=== PATIENT | female | born 1930 | race African-American/Black ===

== ENCOUNTER 2017-08-23 16:18 | Inpatient (IN) ==
[2017-08-23] MEDS ORDERED: ACETAMINOPHEN 500 MG TABLET PO STA (17:05)
[2017-08-23] MEDS ORDERED: cefTRIAXone 1,000 MG in SODIUM CHLORIDE 0.9% 100 ML IV STA (17:05)
[2017-08-23] MEDS ORDERED: SODIUM CHLORIDE 0.9% 500 ML IV STA (17:05)
[2017-08-23 17:34] LABS: Basophils % 0.2 % (0.0-0.8); Hematocrit 23.3 VOL% (35.7-47.0); Hemoglobin 7.2 GM/DL (12.0-16.0); Immature Granulocytes % 0.5 %; Immature Granulocytes Absolute 0.08 #; Lymphocytes # 1.2 10*3/uL (1.4-4.0); Lymphocytes % 7.7 % (21.3-54.2); Mean Corpuscular HGB Conc 30.9 GM/DL (32-36); Mean Corpuscular Hemoglobin 36 PG (27-34); Mean Corpuscular Volume 117.7 FL (87-102); Mean Platelet Volume 12.3 FL (9.6-12.0); Monocytes # 0.9 10*3/uL (0.11-0.8); Monocytes % 5.4 % (1.7-12.7); NRBC # 1.26 10*3/uL; Neutrophils # 13.9 10*3/uL (1.4-7.4); Neutrophils % 86.2 % (38.7-73.9); Platelet Count 171 T/CUMM (130-400); Red Blood Count 1.98 MC/CUMM (3.8-5.5); Red Cell Distribution Width 19.2 % (9.3-17.3); White Blood Count 16.1 T/CUMM (4-12)
[2017-08-23 17:47] LABS: INR 1.5; PT Patient Result 16.1 SECS
[2017-08-23] MEDS ORDERED: cefTRIAXone 1,000 MG VIAL ONE (17:51)
[2017-08-23] MEDS ORDERED: ACETAMINOPHEN 650 MG SUPP RECTAL STA (17:51)
[2017-08-23] MEDS ORDERED: ACETAMINOPHEN 650 MG SUPP RECTAL ONE (17:52)
[2017-08-23 17:56] LABS: Alanine Aminotransferase 34 U/L (13-56); Albumin 2.5 G/DL (3.4-5.0); Alkaline Phosphatase 95 U/L (45-117); Amylase 15 U/L (25-115); Aspartate Amino Transferase 30 U/L (0-37); Bilirubin,Total < 0.39 MG/DL (0.2-1.0); Blood Urea Nitrogen 75 MG/DL (7-18); Calcium 8.8 MG/DL (8.5-10.1); Glucose 385 MG/DL (74-106); Osmolality,Calculated 346.2 MOS/KG (273-304); Potassium 3.7 MMOL/L (3.5-5.1); Sodium 156 MMOL/L (136-145); Total Protein 6.9 G/DL (6.4-8.3)
[2017-08-23 17:57] LABS: Lactic Acid 2.9 MMOL/L (0.4-2.0)
[2017-08-23 18:04] LABS: Apearance,Urine CLOUDY (Clear); Bacteria,Urine Many /HPF (Few); Bilirubin,Urine Negative (Negative); Blood, Urine Small mg/dL (Negative); Glucose,Urine (UA) 50 mg/dL (Negative); Ketones,Urine Negative (Negative); Mucus,Urine Occasional /LPF (Occasional); Nitrite,Urine Negative (Negative); Protein,Urine Negative; RBC,Urine 20 /HPF (0-4); Urine Color Amber (Yellow); Urine Specific Gravity 1.014 (1.001-1.035); Urine Urobilinogen < 2.0 EU/DL (0.2-1.0)
[2017-08-23 18:20] LABS: Anisocytosis 2+; Hypochromasia 1+; Macrocytosis 2+; Ovalocytes 1+; Platelet Estimate Adequate; Poikilocytosis 1+; Polychromasia 1+
[2017-08-23 18:40] LABS: Sedimentation Rate-Westergren 130 MM/HR (0-30)
[2017-08-23] MEDS ORDERED: INSULIN REGULAR 100 UNIT/ML SUBCUT STA (18:59)
[2017-08-23 19:04] LABS: INR 1.5; Partial Thromboplastin Time 25.6 SECS (0-40)
[2017-08-23] MEDS ORDERED: MEROPENEM 1,000 MG VIAL IV ONE (19:16)
[2017-08-23] MEDS ORDERED: INSULIN REGULAR 100 UNIT/ML ONE (19:18)
[2017-08-23] MEDS: MEROPENEM 1,000 MG in SYRINGE 1 EACH IV SCH (19:27)
[2017-08-23] MEDS ORDERED: MORPHINE 2 MG/1 ML SYRINGE IV PRN (22:16)
[2017-08-23] MEDS ORDERED: ONDANSETRON 4 MG/2 ML VIAL IV PRN (22:16)
[2017-08-23] MEDS ORDERED: GLUCAGON 1 MG VIAL IM PRN (22:16)
[2017-08-23] MEDS ORDERED: SODIUM CHLORIDE 0.9% 1,000 ML IV SCH (22:16)
[2017-08-23] MEDS ORDERED: DEXTROSE 50% 25 GM/50 ML VIAL IV PRN (22:16)
[2017-08-23] MEDS ORDERED: DOCUSATE SODIUM 100 MG CAPSULE PO SCH (22:16)
[2017-08-23] MEDS: ENOXAPARIN 40 MG/0.4 ML SYRINGE SUBCUT SCH (22:50)
[2017-08-23] MEDS: INSULIN REGULAR 100 UNIT/ML SUBCUT SCH (22:53)
[2017-08-24] MEDS: MEROPENEM 1,000 MG in SYRINGE 1 EACH IV SCH ×3 (02:30→21:16)
[2017-08-24 03:05] LABS: Basophils % 0.2 % (0.0-0.8); Hematocrit 22.6 VOL% (35.7-47.0); Hemoglobin 6.6 GM/DL (12.0-16.0); Immature Granulocytes % 0.7 %; Immature Granulocytes Absolute 0.11 #; Lymphocytes % 12.6 % (21.3-54.2); Mean Corpuscular HGB Conc 29.2 GM/DL (32-36); Mean Corpuscular Hemoglobin 36 PG (27-34); Mean Corpuscular Volume 122.2 FL (87-102); Mean Platelet Volume 12.4 FL (9.6-12.0); NRBC # 1.61 10*3/uL; Neutrophils # 12.7 10*3/uL (1.4-7.4); Neutrophils % 80.5 % (38.7-73.9); Platelet Count 152 T/CUMM (130-400); Red Blood Count 1.85 MC/CUMM (3.8-5.5); Red Cell Distribution Width 19.8 % (9.3-17.3); White Blood Count 15.8 T/CUMM (4-12)
[2017-08-24 03:30] LABS: Alanine Aminotransferase 33 U/L (13-56); Albumin 2.2 G/DL (3.4-5.0); Alkaline Phosphatase 86 U/L (45-117); Aspartate Amino Transferase 34 U/L (0-37); Blood Urea Nitrogen 66 MG/DL (7-18); Calcium 8.5 MG/DL (8.5-10.1); Glucose 260 MG/DL (74-106); Potassium 3.1 MMOL/L (3.5-5.1); Total Protein 6.4 G/DL (6.4-8.3)
[2017-08-24 03:31] LABS: Risk Ratio 1.89
[2017-08-24 03:37] LABS: Sodium 164 MMOL/L (136-145)
[2017-08-24 04:04] LABS: Band Neutrophils 5 % (0-10); Lymphocytes 13 % (20-55); Metamyelocytes 1 %; Nucleated Red Blood Cells 10 (0-5); Segmented Neutrophils 79 % (50-85); Total Cells Counted 100
[2017-08-24 04:05] LABS: Anisocytosis 1+; Hypochromasia 1+; Polychromasia Few
[2017-08-24 04:06] LABS: Platelet Estimate Normal; Target Cells Few
[2017-08-24 04:12] LABS: Lactic Acid 2.2 MMOL/L (0.4-2.0)
[2017-08-24] MEDS ORDERED: SODIUM CHLORIDE 0.9% 1,000 ML IV PRN (04:26)
[2017-08-24] MEDS: SODIUM CHLORIDE 23.4% CONC INJ 38.5 MEQ in STERILE WATER INJ 1,000 ML IV SCH ×2 (05:42→14:52)
[2017-08-24] MEDS: ACETAMINOPHEN 325 MG TABLET PO PRN (07:22)
[2017-08-24] MEDS ORDERED: [UNRECOGNIZED DRUG - OTHER] PEG SCH (09:00)
[2017-08-24] MEDS: MULTIVITAMIN LIQUID (CENTRUM) 60 ML BOTTLE PO SCH (09:10)
[2017-08-24] MEDS: levETIRAcetam LIQUID 100 MG/ML 30 ML/BOTTLE PEG SCH ×2 (09:10→21:16)
[2017-08-24] MEDS: PANTOPRAZOLE 40 MG VIAL IV SCH (09:11)
[2017-08-24] MEDS: DOCUSATE SODIUM 100 MG/10 ML UDCUP PO SCH ×2 (09:11→21:17)
[2017-08-24] MEDS: PHENYTOIN 100 MG/4 ML UDCUP PEG SCH (09:11)
[2017-08-24] MEDS: BRIMONIDINE 0.2% OPH SOLN 5 ML BOTTLE BOTH EYES SCH ×2 (09:11→21:15)
[2017-08-24] MEDS: DILTIAZEM 60 MG TABLET PO SCH ×2 (09:12→21:17)
[2017-08-24] MEDS: POLYVINYL ALCOHOL 1.4% OPH SOLN 15 ML BOTTLE BOTH EYES PRN ×2 (09:12→21:16)
[2017-08-24] MEDS: ASPIRIN CHEW 81 MG TABLET PO SCH (09:12)
[2017-08-24] MEDS: LISINOPRIL 5 MG TABLET PEG SCH (09:12)
[2017-08-24] MEDS: INSULIN REGULAR 100 UNIT/ML SUBCUT SCH ×3 (09:34→17:15)
[2017-08-24 11:12] LABS: Apearance,Urine CLOUDY (Clear); Bilirubin,Urine Negative (Negative); Blood, Urine Moderate mg/dL (Negative); Glucose,Urine (UA) Negative (Negative); Ketones,Urine Negative (Negative); Mucus,Urine Occasional /LPF (Occasional); Nitrite,Urine Negative (Negative); Protein,Urine Negative; RBC,Urine 55 /HPF (0-4); Squamous Epithelial Cell,Urine Occasional /HPF (0-10); Urine Color Yellow (Yellow); Urine Specific Gravity 1.016 (1.001-1.035); Urine Urobilinogen < 2.0 EU/DL (0.2-1.0); WBC,Urine 53 /HPF (0-6)
[2017-08-24 13:44] LABS: Basophils % 0.2 % (0.0-0.8); Eosinophils % 0.1 % (0.00-10.9); Hematocrit 23.6 VOL% (35.7-47.0); Hemoglobin 7.3 GM/DL (12.0-16.0); Immature Granulocytes % 0.6 %; Immature Granulocytes Absolute 0.08 #; Lymphocytes # 1.8 10*3/uL (1.4-4.0); Lymphocytes % 14.2 % (21.3-54.2); Mean Corpuscular HGB Conc 30.9 GM/DL (32-36); Mean Corpuscular Hemoglobin 35 PG (27-34); Mean Corpuscular Volume 112.4 FL (87-102); Mean Platelet Volume 11.7 FL (9.6-12.0); Monocytes # 0.7 10*3/uL (0.11-0.8); Monocytes % 5.3 % (1.7-12.7); NRBC # 1.46 10*3/uL; Neutrophils # 10.3 10*3/uL (1.4-7.4); Neutrophils % 79.6 % (38.7-73.9); Platelet Count 128 T/CUMM (130-400); Red Cell Distribution Width 21.7 % (9.3-17.3)
[2017-08-24 14:09] LABS: Calcium 8.1 MG/DL (8.5-10.1); Osmolality,Calculated 342.5 MOS/KG (273-304); Potassium 3.1 MMOL/L (3.5-5.1)
[2017-08-24] MEDS: POTASSIUM CHLORIDE 20 MEQ/15 ML UDCUP PER TUBE PRN ×4 (14:51→21:15)
[2017-08-24 15:48] LABS: Band Neutrophils 2 % (0-10); Lymphocytes 17 % (20-55); Nucleated Red Blood Cells 10 (0-5); Platelet Estimate Normal; Segmented Neutrophils 80 % (50-85); Total Cells Counted 100
[2017-08-24] MEDS: ENOXAPARIN 40 MG/0.4 ML SYRINGE SUBCUT SCH (21:16)
[2017-08-24] MEDS: BIMATOPROST 0.01% OPH SOLN 2.5 ML BOTTLE BOTH EYES SCH (21:18)
[2017-08-25] MEDS: SODIUM CHLORIDE 23.4% CONC INJ 38.5 MEQ in STERILE WATER INJ 1,000 ML IV SCH (01:08)
[2017-08-25] MEDS: ENOXAPARIN 40 MG/0.4 ML SYRINGE SUBCUT SCH ×2 (01:09→22:16)
[2017-08-25] MEDS: INSULIN REGULAR 100 UNIT/ML SUBCUT SCH ×4 (01:13→17:41)
[2017-08-25] MEDS: ACETAMINOPHEN 325 MG TABLET PO PRN ×3 (01:14→15:45)
[2017-08-25] MEDS: MEROPENEM 1,000 MG in SYRINGE 1 EACH IV SCH ×2 (03:17→15:46)
[2017-08-25] MEDS ORDERED: FUROSEMIDE 20 MG/2 ML VIAL IV ONE (06:30)
[2017-08-25] MEDS ORDERED: SODIUM CHLORIDE 23.4% CONC INJ 38.5 MEQ in STERILE WATER INJ 1,000 ML IV SCH (07:00)
[2017-08-25 07:07] LABS: Calcium 7.8 MG/DL (8.5-10.1); Osmolality,Calculated 330.4 MOS/KG (273-304); Potassium 4.3 MMOL/L (3.5-5.1)
[2017-08-25] MEDS ORDERED: ZINC OXIDE PASTE 113 GM TUBE TOP PRN (07:32)
[2017-08-25] MEDS: BRIMONIDINE 0.2% OPH SOLN 5 ML BOTTLE BOTH EYES SCH ×2 (09:56→22:16)
[2017-08-25] MEDS: levETIRAcetam LIQUID 100 MG/ML 30 ML/BOTTLE PEG SCH ×2 (09:56→22:16)
[2017-08-25] MEDS: MULTIVITAMIN LIQUID (CENTRUM) 60 ML BOTTLE PO SCH (09:56)
[2017-08-25] MEDS: DOCUSATE SODIUM 100 MG/10 ML UDCUP PO SCH ×2 (09:57→22:16)
[2017-08-25] MEDS: ASPIRIN CHEW 81 MG TABLET PO SCH (09:57)
[2017-08-25] MEDS: LISINOPRIL 5 MG TABLET PEG SCH (09:57)
[2017-08-25] MEDS: DILTIAZEM 60 MG TABLET PO SCH (09:57)
[2017-08-25] MEDS: PHENYTOIN 100 MG/4 ML UDCUP PEG SCH (09:57)
[2017-08-25] MEDS: PANTOPRAZOLE 40 MG VIAL IV SCH (09:58)
[2017-08-25 11:43] LABS: Basophils % 0.2 % (0.0-0.8); Hematocrit 25.1 VOL% (35.7-47.0); Hemoglobin 7.8 GM/DL (12.0-16.0); Immature Granulocytes % 1.1 %; Immature Granulocytes Absolute 0.13 #; Lymphocytes # 1.3 10*3/uL (1.4-4.0); Lymphocytes % 10.4 % (21.3-54.2); Mean Corpuscular HGB Conc 31.1 GM/DL (32-36); Mean Corpuscular Hemoglobin 35 PG (27-34); Mean Corpuscular Volume 112.1 FL (87-102); Mean Platelet Volume 12.6 FL (9.6-12.0); Monocytes # 0.9 10*3/uL (0.11-0.8); Monocytes % 7.4 % (1.7-12.7); NRBC # 3.75 10*3/uL; Neutrophils % 80.9 % (38.7-73.9); Platelet Count 149 T/CUMM (130-400); Red Blood Count 2.24 MC/CUMM (3.8-5.5); White Blood Count 12.3 T/CUMM (4-12)
[2017-08-25] MEDS ORDERED: METOPROLOL TARTRATE 5 MG/5 ML VIAL IV SCH (12:00)
[2017-08-25] MEDS: DEXTROSE 5% 1,000 ML IV SCH (12:10)
[2017-08-25 12:12] LABS: Giant Platelets Few; Hypochromasia 1+; Lymphocytes 13 % (20-55); Nucleated Red Blood Cells 36 (0-5); Platelet Estimate Normal; Segmented Neutrophils 83 % (50-85); Total Cells Counted 100
[2017-08-25] MEDS ORDERED: METOPROLOL TARTRATE 5 MG/5 ML VIAL IV PRN (12:16)
[2017-08-25] MEDS ORDERED: ALBUTEROL/IPRATROPIUM 3 ML NEB RESP TX ONE (12:32)
[2017-08-25] MEDS ORDERED: VANCOMYCIN INJ 1,250 MG in SODIUM CHLORIDE 0.45% 250 ML IV PRN (13:30)
[2017-08-25] MEDS ORDERED: VANCOMYCIN INJ 1,250 MG in SODIUM CHLORIDE 0.45% 250 ML IV ONE (15:00)
[2017-08-25] MEDS ORDERED: ALBUTEROL/IPRATROPIUM 3 ML NEB RESP TX SCH (15:00)
[2017-08-25] MEDS ORDERED: ALBUTEROL 2.5 MG/3 ML NEB RESP TX SCH (15:00)
[2017-08-25] MEDS: LEVALBUTEROL 0.63 MG/3 ML NEB RESP TX SCH ×2 (15:04→19:58)
[2017-08-25] MEDS ORDERED: SKIN HEALING OINT (AQUAPHOR) 50 GM TUBE TOP PRN (17:15)
[2017-08-25 17:46] LABS: Calcium 7.1 MG/DL (8.5-10.1); Osmolality,Calculated 333.9 MOS/KG (273-304); Potassium 3.8 MMOL/L (3.5-5.1)
[2017-08-25] MEDS: IPRATROPIUM 500 MCG/2.5 ML NEB RESP TX SCH (19:58)
[2017-08-25] MEDS: BIMATOPROST 0.01% OPH SOLN 2.5 ML BOTTLE BOTH EYES SCH (22:15)
[2017-08-26] MEDS: INSULIN REGULAR 100 UNIT/ML SUBCUT SCH ×4 (00:22→18:35)
[2017-08-26] MEDS: LEVALBUTEROL 0.63 MG/3 ML NEB RESP TX SCH ×4 (00:57→19:55)
[2017-08-26] MEDS: IPRATROPIUM 500 MCG/2.5 ML NEB RESP TX SCH ×4 (00:57→19:55)
[2017-08-26] MEDS: DEXTROSE 5% 1,000 ML IV SCH ×2 (03:39→04:13)
[2017-08-26] MEDS: ACETAMINOPHEN 325 MG/10.15 ML UDCUP PO PRN ×2 (03:40→20:29)
[2017-08-26] MEDS: MEROPENEM 1,000 MG in SYRINGE 1 EACH IV SCH ×2 (04:06→14:58)
[2017-08-26] MEDS ORDERED: INSULIN GLARGINE 100 UNIT/ML SUBCUT SCH ×3 (09:00→22:30)
[2017-08-26] MEDS: MULTIVITAMIN LIQUID (CENTRUM) 60 ML BOTTLE PO SCH (10:22)
[2017-08-26] MEDS: levETIRAcetam LIQUID 100 MG/ML 30 ML/BOTTLE PEG SCH ×2 (10:22→20:30)
[2017-08-26] MEDS: POLYVINYL ALCOHOL 1.4% OPH SOLN 15 ML BOTTLE BOTH EYES PRN (10:22)
[2017-08-26] MEDS: PANTOPRAZOLE 40 MG VIAL IV SCH (10:23)
[2017-08-26] MEDS: DOCUSATE SODIUM 100 MG/10 ML UDCUP PO SCH ×2 (10:24→20:29)
[2017-08-26] MEDS: PHENYTOIN 100 MG/4 ML UDCUP PEG SCH (10:24)
[2017-08-26] MEDS: BRIMONIDINE 0.2% OPH SOLN 5 ML BOTTLE BOTH EYES SCH ×2 (10:25→20:30)
[2017-08-26] MEDS: ASPIRIN CHEW 81 MG TABLET PO SCH (10:25)
[2017-08-26] MEDS: ACETAMINOPHEN 325 MG TABLET PO PRN (10:49)
[2017-08-26 12:13] LABS: Basophils % 0.3 % (0.0-0.8); Eosinophils # 0.1 10*3/uL (0.0-0.87); Eosinophils % 0.4 % (0.00-10.9); Hemoglobin 8.5 GM/DL (12.0-16.0); Immature Granulocytes % 1.1 %; Immature Granulocytes Absolute 0.15 #; Lymphocytes # 0.5 10*3/uL (1.4-4.0); Lymphocytes % 3.9 % (21.3-54.2); Mean Corpuscular HGB Conc 32.7 GM/DL (32-36); Mean Corpuscular Hemoglobin 33 PG (27-34); Mean Corpuscular Volume 101.6 FL (87-102); Mean Platelet Volume 12.6 FL (9.6-12.0); Monocytes # 0.9 10*3/uL (0.11-0.8); Monocytes % 6.7 % (1.7-12.7); NRBC # 5.18 10*3/uL; Neutrophils # 12.1 10*3/uL (1.4-7.4); Neutrophils % 87.6 % (38.7-73.9); Platelet Count 125 T/CUMM (130-400); Red Blood Count 2.56 MC/CUMM (3.8-5.5); Red Cell Distribution Width 24.1 % (9.3-17.3); White Blood Count 13.8 T/CUMM (4-12)
[2017-08-26 12:43] LABS: Band Neutrophils 2 % (0-10); Giant Platelets Few; Hypochromasia 1+; Lymphocytes 9 % (20-55); Nucleated Red Blood Cells 36 (0-5); Platelet Estimate Normal; Segmented Neutrophils 82 % (50-85); Total Cells Counted 100
[2017-08-26 12:55] LABS: Osmolality,Calculated 323.9 MOS/KG (273-304); Potassium 3.6 MMOL/L (3.5-5.1); Prealbumin 8.5 MG/DL (20-40)
[2017-08-26 13:34] LABS: Albumin 1.8 G/DL (3.4-5.0); Bilirubin,Total 0.5 MG/DL (0.2-1.0); Calcium 7.2 MG/DL (8.5-10.1); Osmolality,Calculated 323.9 MOS/KG (273-304); Potassium 3.6 MMOL/L (3.5-5.1); Total Protein 5.2 G/DL (6.4-8.3)
[2017-08-26] MEDS ORDERED: MORPHINE 10 MG/1 ML VIAL IV PRN (14:30)
[2017-08-26] MEDS: BIMATOPROST 0.01% OPH SOLN 2.5 ML BOTTLE BOTH EYES SCH (20:30)
[2017-08-27] MEDS: LEVALBUTEROL 0.63 MG/3 ML NEB RESP TX SCH ×4 (00:46→19:31)
[2017-08-27] MEDS: IPRATROPIUM 500 MCG/2.5 ML NEB RESP TX SCH ×4 (00:46→19:31)
[2017-08-27] MEDS: INSULIN REGULAR 100 UNIT/ML SUBCUT SCH ×4 (00:50→18:20)
[2017-08-27] MEDS: DEXTROSE 5% 1,000 ML IV SCH ×5 (00:53→20:28)
[2017-08-27] MEDS: ceFAZolin 1,000 MG in SYRINGE 1 EACH IV SCH ×3 (00:54→17:47)
[2017-08-27] MEDS: ENOXAPARIN 40 MG/0.4 ML SYRINGE SUBCUT SCH ×2 (00:54→22:34)
[2017-08-27] MEDS: ACETAMINOPHEN 325 MG/10.15 ML UDCUP PO PRN ×2 (04:32→23:35)
[2017-08-27 07:15] LABS: Calcium 6.9 MG/DL (8.5-10.1); Osmolality,Calculated 316.9 MOS/KG (273-304); Potassium 3.7 MMOL/L (3.5-5.1)
[2017-08-27] MEDS: ASPIRIN CHEW 81 MG TABLET PO SCH (09:11)
[2017-08-27] MEDS: PANTOPRAZOLE 40 MG VIAL IV SCH (09:11)
[2017-08-27] MEDS: PHENYTOIN 100 MG/4 ML UDCUP PEG SCH (09:11)
[2017-08-27] MEDS: MULTIVITAMIN LIQUID (CENTRUM) 60 ML BOTTLE PO SCH (09:12)
[2017-08-27] MEDS: DOCUSATE SODIUM 100 MG/10 ML UDCUP PO SCH ×2 (09:12→20:14)
[2017-08-27] MEDS: BRIMONIDINE 0.2% OPH SOLN 5 ML BOTTLE BOTH EYES SCH ×2 (09:12→20:14)
[2017-08-27] MEDS: levETIRAcetam LIQUID 100 MG/ML 30 ML/BOTTLE PEG SCH ×2 (09:12→20:17)
[2017-08-27] MEDS ORDERED: INSULIN GLARGINE 100 UNIT/ML SUBCUT SCH (16:29)
[2017-08-27] MEDS: BIMATOPROST 0.01% OPH SOLN 2.5 ML BOTTLE BOTH EYES SCH (20:13)
[2017-08-27] MEDS: INSULIN GLARGINE 100 UNIT/ML SUBCUT SCH (20:14)
[2017-08-28] MEDS: IPRATROPIUM 500 MCG/2.5 ML NEB RESP TX SCH ×4 (00:57→20:49)
[2017-08-28] MEDS: LEVALBUTEROL 0.63 MG/3 ML NEB RESP TX SCH ×4 (00:57→20:49)
[2017-08-28] MEDS: INSULIN REGULAR 100 UNIT/ML SUBCUT SCH ×4 (01:36→17:46)
[2017-08-28] MEDS: ceFAZolin 1,000 MG in SYRINGE 1 EACH IV SCH ×3 (01:37→17:46)
[2017-08-28] MEDS: DEXTROSE 5% 1,000 ML IV SCH (06:39)
[2017-08-28 06:42] LABS: Basophils % 0.2 % (0.0-0.8); Eosinophils # 0.3 10*3/uL (0.0-0.87); Eosinophils % 3.5 % (0.00-10.9); Hematocrit 24.3 VOL% (35.7-47.0); Lymphocytes # 1.4 10*3/uL (1.4-4.0); Mean Corpuscular HGB Conc 32.5 GM/DL (32-36); Mean Corpuscular Hemoglobin 34 PG (27-34); Mean Platelet Volume 12.4 FL (9.6-12.0); Monocytes # 0.8 10*3/uL (0.11-0.8); Monocytes % 7.9 % (1.7-12.7); NRBC # 3.87 10*3/uL; Neutrophils # 6.9 10*3/uL (1.4-7.4); Neutrophils % 72.4 % (38.7-73.9); Platelet Count 104 T/CUMM (130-400); Red Blood Count 2.36 MC/CUMM (3.8-5.5); Red Cell Distribution Width 21.4 % (9.3-17.3); White Blood Count 9.6 T/CUMM (4-12)
[2017-08-28 07:11] LABS: Hemoglobin 7.9 GM/DL (12.0-16.0)
[2017-08-28 07:14] LABS: Calcium 7.1 MG/DL (8.5-10.1); Osmolality,Calculated 301.8 MOS/KG (273-304); Potassium 3.4 MMOL/L (3.5-5.1); Prealbumin 6.2 MG/DL (20-40)
[2017-08-28 07:19] LABS: Band Neutrophils 2 % (0-10); Eosinophils 5 % (0-10); Hypochromasia 1+; Lymphocytes 14 % (20-55); Nucleated Red Blood Cells 61 (0-5); Ovalocytes Slight; Platelet Estimate Decreased; Segmented Neutrophils 75 % (50-85); Total Cells Counted 100
[2017-08-28 07:20] LABS: Giant Platelets Few
[2017-08-28] MEDS: PANTOPRAZOLE 40 MG VIAL IV SCH (08:53)
[2017-08-28] MEDS: POTASSIUM CHLORIDE 20 MEQ/15 ML UDCUP PER TUBE PRN ×3 (08:53→13:20)
[2017-08-28] MEDS: PHENYTOIN 100 MG/4 ML UDCUP PEG SCH (08:53)
[2017-08-28] MEDS: POLYVINYL ALCOHOL 1.4% OPH SOLN 15 ML BOTTLE BOTH EYES PRN ×2 (08:53→21:44)
[2017-08-28] MEDS: ASPIRIN CHEW 81 MG TABLET PO SCH (08:54)
[2017-08-28] MEDS: INSULIN GLARGINE 100 UNIT/ML SUBCUT SCH ×2 (08:54→21:43)
[2017-08-28] MEDS: MULTIVITAMIN LIQUID (CENTRUM) 60 ML BOTTLE PO SCH (08:54)
[2017-08-28] MEDS: BRIMONIDINE 0.2% OPH SOLN 5 ML BOTTLE BOTH EYES SCH ×2 (08:54→21:44)
[2017-08-28] MEDS: DOCUSATE SODIUM 100 MG/10 ML UDCUP PO SCH ×2 (08:55→21:44)
[2017-08-28] MEDS: levETIRAcetam LIQUID 100 MG/ML 30 ML/BOTTLE PEG SCH ×2 (08:55→21:46)
[2017-08-28] MEDS: SODIUM CHLORIDE 0.45% 1,000 ML IV SCH (11:43)
[2017-08-28] MEDS: ACETAMINOPHEN 325 MG/10.15 ML UDCUP PO PRN (16:10)
[2017-08-28] MEDS: BIMATOPROST 0.01% OPH SOLN 2.5 ML BOTTLE BOTH EYES SCH (21:44)
[2017-08-28] MEDS: ENOXAPARIN 40 MG/0.4 ML SYRINGE SUBCUT SCH (21:48)
[2017-08-29] MEDS: INSULIN REGULAR 100 UNIT/ML SUBCUT SCH ×4 (00:09→17:37)
[2017-08-29] MEDS: SODIUM CHLORIDE 0.45% 1,000 ML IV SCH ×2 (00:22→15:58)
[2017-08-29] MEDS: ceFAZolin 1,000 MG in SYRINGE 1 EACH IV SCH ×3 (00:22→18:51)
[2017-08-29] MEDS: ACETAMINOPHEN 325 MG/10.15 ML UDCUP PO PRN (00:44)
[2017-08-29] MEDS: IPRATROPIUM 500 MCG/2.5 ML NEB RESP TX SCH ×4 (01:22→20:36)
[2017-08-29] MEDS: LEVALBUTEROL 0.63 MG/3 ML NEB RESP TX SCH ×4 (01:22→20:36)
[2017-08-29 06:36] LABS: Calcium 6.8 MG/DL (8.5-10.1); Osmolality,Calculated 291.1 MOS/KG (273-304); Potassium 4.2 MMOL/L (3.5-5.1)
[2017-08-29] MEDS ORDERED: SODIUM PHOSPHATE INJ 30 MMOL in SODIUM CHLORIDE 0.9% 250 ML IV ONE (08:55)
[2017-08-29] MEDS: INSULIN GLARGINE 100 UNIT/ML SUBCUT SCH ×2 (10:10→21:49)
[2017-08-29] MEDS: MULTIVITAMIN LIQUID (CENTRUM) 60 ML BOTTLE PO SCH (10:58)
[2017-08-29] MEDS: levETIRAcetam LIQUID 100 MG/ML 30 ML/BOTTLE PEG SCH ×2 (10:59→21:06)
[2017-08-29] MEDS: PANTOPRAZOLE 40 MG VIAL IV SCH (11:01)
[2017-08-29] MEDS: PHENYTOIN 100 MG/4 ML UDCUP PEG SCH (11:03)
[2017-08-29] MEDS: DOCUSATE SODIUM 100 MG/10 ML UDCUP PO SCH ×2 (11:03→21:06)
[2017-08-29] MEDS: ASPIRIN CHEW 81 MG TABLET PO SCH (11:04)
[2017-08-29] MEDS: BRIMONIDINE 0.2% OPH SOLN 5 ML BOTTLE BOTH EYES SCH ×2 (11:05→21:26)
[2017-08-29] MEDS: BIMATOPROST 0.01% OPH SOLN 2.5 ML BOTTLE BOTH EYES SCH (21:26)
[2017-08-29] MEDS: ENOXAPARIN 40 MG/0.4 ML SYRINGE SUBCUT SCH (21:48)
[2017-08-29] MEDS: ACETAMINOPHEN 325 MG TABLET PO PRN (23:46)
[2017-08-30] MEDS: INSULIN REGULAR 100 UNIT/ML SUBCUT SCH ×4 (00:01→18:28)
[2017-08-30] MEDS: ceFAZolin 1,000 MG in SYRINGE 1 EACH IV SCH ×3 (01:41→16:59)
[2017-08-30] MEDS: IPRATROPIUM 500 MCG/2.5 ML NEB RESP TX SCH ×4 (02:17→19:49)
[2017-08-30] MEDS: LEVALBUTEROL 0.63 MG/3 ML NEB RESP TX SCH ×4 (02:17→19:49)
[2017-08-30 05:09] LABS: Basophils % 0.4 % (0.0-0.8); Eosinophils # 0.4 10*3/uL (0.0-0.87); Eosinophils % 4.2 % (0.00-10.9); Hematocrit 24.8 VOL% (35.7-47.0); Hemoglobin 7.6 GM/DL (12.0-16.0); Immature Granulocytes % 0.9 %; Immature Granulocytes Absolute 0.08 #; Lymphocytes # 3.1 10*3/uL (1.4-4.0); Lymphocytes % 33.9 % (21.3-54.2); Mean Corpuscular HGB Conc 30.6 GM/DL (32-36); Mean Corpuscular Hemoglobin 33 PG (27-34); Mean Corpuscular Volume 108.3 FL (87-102); Mean Platelet Volume 12.4 FL (9.6-12.0); Monocytes # 0.8 10*3/uL (0.11-0.8); Monocytes % 9.1 % (1.7-12.7); NRBC # 0.82 10*3/uL; Neutrophils # 4.6 10*3/uL (1.4-7.4); Neutrophils % 51.5 % (38.7-73.9); Platelet Count 130 T/CUMM (130-400); Red Blood Count 2.29 MC/CUMM (3.8-5.5); Red Cell Distribution Width 19.9 % (9.3-17.3)
[2017-08-30 05:36] LABS: Calcium 7.2 MG/DL (8.5-10.1); Osmolality,Calculated 283.1 MOS/KG (273-304); Potassium 3.9 MMOL/L (3.5-5.1)
[2017-08-30] MEDS: SODIUM CHLORIDE 0.45% 1,000 ML IV SCH (06:42)
[2017-08-30] MEDS: INSULIN GLARGINE 100 UNIT/ML SUBCUT SCH ×2 (09:31→22:28)
[2017-08-30] MEDS: MULTIVITAMIN LIQUID (CENTRUM) 60 ML BOTTLE PO SCH (09:33)
[2017-08-30] MEDS: PANTOPRAZOLE 40 MG VIAL IV SCH (09:33)
[2017-08-30] MEDS: PHENYTOIN 100 MG/4 ML UDCUP PEG SCH (09:34)
[2017-08-30] MEDS: POTASSIUM CHLORIDE 20 MEQ/15 ML UDCUP PER TUBE PRN (09:34)
[2017-08-30] MEDS: levETIRAcetam LIQUID 100 MG/ML 30 ML/BOTTLE PEG SCH ×2 (09:34→22:27)
[2017-08-30] MEDS: DOCUSATE SODIUM 100 MG/10 ML UDCUP PO SCH ×2 (09:37→22:28)
[2017-08-30] MEDS: ASPIRIN CHEW 81 MG TABLET PO SCH (09:37)
[2017-08-30] MEDS: BRIMONIDINE 0.2% OPH SOLN 5 ML BOTTLE BOTH EYES SCH ×2 (09:42→22:35)
[2017-08-30] MEDS: BIMATOPROST 0.01% OPH SOLN 2.5 ML BOTTLE BOTH EYES SCH (22:35)
[2017-08-30] MEDS: ENOXAPARIN 40 MG/0.4 ML SYRINGE SUBCUT SCH (23:13)
[2017-08-31] MEDS: IPRATROPIUM 500 MCG/2.5 ML NEB RESP TX SCH ×4 (00:42→20:43)
[2017-08-31] MEDS: LEVALBUTEROL 0.63 MG/3 ML NEB RESP TX SCH ×4 (00:42→20:43)
[2017-08-31] MEDS: ceFAZolin 1,000 MG in SYRINGE 1 EACH IV SCH ×3 (00:47→17:40)
[2017-08-31] MEDS: INSULIN REGULAR 100 UNIT/ML SUBCUT SCH ×2 (00:58→07:39)
[2017-08-31] MEDS: INSULIN GLARGINE 100 UNIT/ML SUBCUT SCH (08:28)
[2017-08-31] MEDS: levETIRAcetam LIQUID 100 MG/ML 30 ML/BOTTLE PEG SCH ×2 (09:00→22:05)
[2017-08-31] MEDS: PANTOPRAZOLE 40 MG VIAL IV SCH (09:57)
[2017-08-31] MEDS: DOCUSATE SODIUM 100 MG/10 ML UDCUP PO SCH ×2 (09:58→22:05)
[2017-08-31] MEDS: PHENYTOIN 100 MG/4 ML UDCUP PEG SCH (09:58)
[2017-08-31] MEDS: ASPIRIN CHEW 81 MG TABLET PO SCH (09:58)
[2017-08-31] MEDS: BRIMONIDINE 0.2% OPH SOLN 5 ML BOTTLE BOTH EYES SCH ×2 (10:00→22:33)
[2017-08-31] MEDS: MULTIVITAMIN LIQUID (CENTRUM) 60 ML BOTTLE PO SCH (10:00)
[2017-08-31] MEDS: INSULIN LISPRO 100 UNIT/ML SUBCUT SCH ×2 (13:26→17:56)
[2017-08-31] MEDS: ENOXAPARIN 40 MG/0.4 ML SYRINGE SUBCUT SCH (22:31)
[2017-08-31] MEDS: BIMATOPROST 0.01% OPH SOLN 2.5 ML BOTTLE BOTH EYES SCH (22:33)
[2017-09-01] MEDS: IPRATROPIUM 500 MCG/2.5 ML NEB RESP TX SCH ×4 (00:28→19:48)
[2017-09-01] MEDS: LEVALBUTEROL 0.63 MG/3 ML NEB RESP TX SCH ×4 (00:28→19:48)
[2017-09-01] MEDS: INSULIN LISPRO 100 UNIT/ML SUBCUT SCH ×5 (01:15→17:12)
[2017-09-01] MEDS: ceFAZolin 1,000 MG in SYRINGE 1 EACH IV SCH ×3 (01:40→17:42)
[2017-09-01] MEDS: ACETAMINOPHEN 325 MG TABLET PO PRN (04:47)
[2017-09-01 06:30] LABS: Calcium 7.5 MG/DL (8.5-10.1); Potassium 4.7 MMOL/L (3.5-5.1)
[2017-09-01] MEDS: PHENYTOIN 100 MG/4 ML UDCUP PEG SCH (10:14)
[2017-09-01] MEDS: MULTIVITAMIN LIQUID (CENTRUM) 60 ML BOTTLE PO SCH (10:15)
[2017-09-01] MEDS: BRIMONIDINE 0.2% OPH SOLN 5 ML BOTTLE BOTH EYES SCH ×2 (10:15→20:36)
[2017-09-01] MEDS: PANTOPRAZOLE 40 MG VIAL IV SCH (10:15)
[2017-09-01] MEDS: ASPIRIN CHEW 81 MG TABLET PO SCH (10:15)
[2017-09-01] MEDS: DOCUSATE SODIUM 100 MG/10 ML UDCUP PO SCH ×2 (10:15→20:36)
[2017-09-01] MEDS: levETIRAcetam LIQUID 100 MG/ML 30 ML/BOTTLE PEG SCH ×2 (10:15→20:36)
[2017-09-01] MEDS: BACITRACIN OINT 0.9 GM PACK TOP SCH (17:12)
[2017-09-01] MEDS: POLYVINYL ALCOHOL 1.4% OPH SOLN 15 ML BOTTLE BOTH EYES PRN (20:36)
[2017-09-01] MEDS: BIMATOPROST 0.01% OPH SOLN 2.5 ML BOTTLE BOTH EYES SCH (21:03)
[2017-09-01] MEDS: ENOXAPARIN 40 MG/0.4 ML SYRINGE SUBCUT SCH (22:05)
[2017-09-02] MEDS: LEVALBUTEROL 0.63 MG/3 ML NEB RESP TX SCH ×4 (00:40→19:15)
[2017-09-02] MEDS: IPRATROPIUM 500 MCG/2.5 ML NEB RESP TX SCH ×4 (00:40→19:15)
[2017-09-02] MEDS: INSULIN LISPRO 100 UNIT/ML SUBCUT SCH ×4 (00:58→18:46)
[2017-09-02] MEDS: ceFAZolin 1,000 MG in SYRINGE 1 EACH IV SCH ×3 (01:39→17:16)
[2017-09-02 06:52] LABS: Basophils % 0.4 % (0.0-0.8); Eosinophils # 0.3 10*3/uL (0.0-0.87); Eosinophils % 5.7 % (0.00-10.9); Hematocrit 24.3 VOL% (35.7-47.0); Hemoglobin 7.6 GM/DL (12.0-16.0); Immature Granulocytes % 0.9 %; Immature Granulocytes Absolute 0.05 #; Lymphocytes # 1.2 10*3/uL (1.4-4.0); Lymphocytes % 21.2 % (21.3-54.2); Mean Corpuscular HGB Conc 31.3 GM/DL (32-36); Mean Corpuscular Hemoglobin 34 PG (27-34); Mean Corpuscular Volume 107.5 FL (87-102); Mean Platelet Volume 11.6 FL (9.6-12.0); Monocytes # 0.5 10*3/uL (0.11-0.8); Monocytes % 9.9 % (1.7-12.7); NRBC # 0.11 10*3/uL; Neutrophils # 3.4 10*3/uL (1.4-7.4); Neutrophils % 61.9 % (38.7-73.9); Platelet Count 199 T/CUMM (130-400); Red Blood Count 2.26 MC/CUMM (3.8-5.5); Red Cell Distribution Width 19.5 % (9.3-17.3); White Blood Count 5.4 T/CUMM (4-12)
[2017-09-02] MEDS: ACETAMINOPHEN 325 MG/10.15 ML UDCUP PO PRN (07:23)
[2017-09-02] MEDS: PHENYTOIN 100 MG/4 ML UDCUP PEG SCH (09:41)
[2017-09-02] MEDS: PANTOPRAZOLE 40 MG VIAL IV SCH (09:41)
[2017-09-02] MEDS: ASPIRIN CHEW 81 MG TABLET PO SCH (09:41)
[2017-09-02] MEDS: DOCUSATE SODIUM 100 MG/10 ML UDCUP PO SCH ×2 (09:42→20:42)
[2017-09-02] MEDS: MULTIVITAMIN LIQUID (CENTRUM) 60 ML BOTTLE PO SCH (09:42)
[2017-09-02] MEDS: levETIRAcetam LIQUID 100 MG/ML 30 ML/BOTTLE PEG SCH ×2 (09:42→20:42)
[2017-09-02] MEDS: BRIMONIDINE 0.2% OPH SOLN 5 ML BOTTLE BOTH EYES SCH ×2 (09:42→20:43)
[2017-09-02] MEDS: BACITRACIN OINT 0.9 GM PACK TOP SCH (17:16)
[2017-09-02] MEDS: BIMATOPROST 0.01% OPH SOLN 2.5 ML BOTTLE BOTH EYES SCH (20:42)
[2017-09-02] MEDS: POLYVINYL ALCOHOL 1.4% OPH SOLN 15 ML BOTTLE BOTH EYES PRN (20:43)
[2017-09-02] MEDS: ENOXAPARIN 40 MG/0.4 ML SYRINGE SUBCUT SCH (23:13)
[2017-09-03] MEDS: INSULIN LISPRO 100 UNIT/ML SUBCUT SCH ×4 (00:30→17:12)
[2017-09-03] MEDS: ceFAZolin 1,000 MG in SYRINGE 1 EACH IV SCH ×3 (00:31→17:10)
[2017-09-03] MEDS: IPRATROPIUM 500 MCG/2.5 ML NEB RESP TX SCH ×4 (00:40→19:50)
[2017-09-03] MEDS: LEVALBUTEROL 0.63 MG/3 ML NEB RESP TX SCH ×4 (00:40→19:50)
[2017-09-03] MEDS: levETIRAcetam LIQUID 100 MG/ML 30 ML/BOTTLE PEG SCH ×2 (09:04→21:03)
[2017-09-03] MEDS: FERROUS SULFATE 300 MG/5 ML UDCUP PER TUBE SCH (09:08)
[2017-09-03] MEDS: MULTIVITAMIN LIQUID (CENTRUM) 60 ML BOTTLE PO SCH (09:08)
[2017-09-03] MEDS: DOCUSATE SODIUM 100 MG/10 ML UDCUP PO SCH ×2 (09:08→21:04)
[2017-09-03] MEDS: PHENYTOIN 100 MG/4 ML UDCUP PEG SCH (09:09)
[2017-09-03] MEDS: ASPIRIN CHEW 81 MG TABLET PO SCH (09:10)
[2017-09-03] MEDS: BACITRACIN OINT 0.9 GM PACK TOP SCH (09:10)
[2017-09-03] MEDS: PANTOPRAZOLE 40 MG VIAL IV SCH (09:10)
[2017-09-03] MEDS: BRIMONIDINE 0.2% OPH SOLN 5 ML BOTTLE BOTH EYES SCH ×2 (09:11→21:03)
[2017-09-03] MEDS: POLYVINYL ALCOHOL 1.4% OPH SOLN 15 ML BOTTLE BOTH EYES PRN (21:03)
[2017-09-03] MEDS: BIMATOPROST 0.01% OPH SOLN 2.5 ML BOTTLE BOTH EYES SCH (21:04)
[2017-09-03 21:25] LABS: Apearance,Urine Slightly Hazy (Clear); Bilirubin,Urine Negative (Negative); Blood, Urine Small mg/dL (Negative); Glucose,Urine (UA) Negative (Negative); Ketones,Urine Negative (Negative); Nitrite,Urine Positive (Negative); Protein,Urine Negative; RBC,Urine 6 /HPF (0-4); Urine Color Yellow (Yellow); Urine Specific Gravity 1.008 (1.001-1.035); Urine Urobilinogen < 2.0 EU/DL (0.2-1.0); WBC,Urine 64 /HPF (0-6)
[2017-09-03 21:26] LABS: Mucus,Urine Occasional /LPF (Occasional)
[2017-09-03] MEDS: ENOXAPARIN 40 MG/0.4 ML SYRINGE SUBCUT SCH (22:09)
[2017-09-04] MEDS: INSULIN LISPRO 100 UNIT/ML SUBCUT SCH ×4 (00:30→17:47)
[2017-09-04] MEDS: ceFAZolin 1,000 MG in SYRINGE 1 EACH IV SCH ×3 (00:32→16:53)
[2017-09-04] MEDS: LEVALBUTEROL 0.63 MG/3 ML NEB RESP TX SCH ×4 (00:36→19:36)
[2017-09-04] MEDS: IPRATROPIUM 500 MCG/2.5 ML NEB RESP TX SCH ×4 (00:36→19:36)
[2017-09-04 06:56] LABS: Osmolality,Calculated 286.1 MOS/KG (273-304); Potassium 4.4 MMOL/L (3.5-5.1); Prealbumin 10.9 MG/DL (20-40)
[2017-09-04 07:33] LABS: Basophils % 0.4 % (0.0-0.8); Eosinophils # 0.3 10*3/uL (0.0-0.87); Eosinophils % 5.7 % (0.00-10.9); Hematocrit 25.9 VOL% (35.7-47.0); Hemoglobin 7.9 GM/DL (12.0-16.0); Immature Granulocytes % 0.6 %; Immature Granulocytes Absolute 0.03 #; Lymphocytes # 1.2 10*3/uL (1.4-4.0); Lymphocytes % 25.1 % (21.3-54.2); Mean Corpuscular HGB Conc 30.5 GM/DL (32-36); Mean Corpuscular Hemoglobin 33 PG (27-34); Mean Corpuscular Volume 107.9 FL (87-102); Mean Platelet Volume 11.4 FL (9.6-12.0); Monocytes # 0.5 10*3/uL (0.11-0.8); Monocytes % 10.9 % (1.7-12.7); Neutrophils # 2.8 10*3/uL (1.4-7.4); Neutrophils % 57.3 % (38.7-73.9); Platelet Count 240 T/CUMM (130-400); Red Cell Distribution Width 19.5 % (9.3-17.3); White Blood Count 4.9 T/CUMM (4-12)
[2017-09-04] MEDS: PHENYTOIN 100 MG/4 ML UDCUP PEG SCH (09:35)
[2017-09-04] MEDS: FERROUS SULFATE 300 MG/5 ML UDCUP PER TUBE SCH (09:35)
[2017-09-04] MEDS: DOCUSATE SODIUM 100 MG/10 ML UDCUP PO SCH ×2 (09:36→23:22)
[2017-09-04] MEDS: BACITRACIN OINT 0.9 GM PACK TOP SCH (09:36)
[2017-09-04] MEDS: PANTOPRAZOLE 40 MG VIAL IV SCH (09:37)
[2017-09-04] MEDS: ASPIRIN CHEW 81 MG TABLET PO SCH (09:37)
[2017-09-04] MEDS: MULTIVITAMIN LIQUID (CENTRUM) 60 ML BOTTLE PO SCH (09:38)
[2017-09-04] MEDS: levETIRAcetam LIQUID 100 MG/ML 30 ML/BOTTLE PEG SCH ×2 (09:38→23:22)
[2017-09-04] MEDS: BRIMONIDINE 0.2% OPH SOLN 5 ML BOTTLE BOTH EYES SCH ×2 (09:39→23:22)
[2017-09-04] MEDS ORDERED: FUROSEMIDE 40 MG/4 ML VIAL IV ONE (17:55)
[2017-09-04] MEDS: ENOXAPARIN 40 MG/0.4 ML SYRINGE SUBCUT SCH (23:23)
[2017-09-04] MEDS: BIMATOPROST 0.01% OPH SOLN 2.5 ML BOTTLE BOTH EYES SCH (23:23)
[2017-09-05] MEDS: LEVALBUTEROL 0.63 MG/3 ML NEB RESP TX SCH ×4 (00:39→19:20)
[2017-09-05] MEDS: IPRATROPIUM 500 MCG/2.5 ML NEB RESP TX SCH ×4 (00:39→19:20)
[2017-09-05] MEDS: INSULIN LISPRO 100 UNIT/ML SUBCUT SCH ×4 (00:52→18:39)
[2017-09-05] MEDS: ceFAZolin 1,000 MG in SYRINGE 1 EACH IV SCH ×3 (01:35→18:39)
[2017-09-05] MEDS: PANTOPRAZOLE 40 MG VIAL IV SCH (09:06)
[2017-09-05] MEDS: ASPIRIN CHEW 81 MG TABLET PO SCH (09:06)
[2017-09-05] MEDS: DOCUSATE SODIUM 100 MG/10 ML UDCUP PO SCH ×2 (09:06→22:37)
[2017-09-05] MEDS: PHENYTOIN 100 MG/4 ML UDCUP PEG SCH (09:06)
[2017-09-05] MEDS: BACITRACIN OINT 0.9 GM PACK TOP SCH (09:06)
[2017-09-05] MEDS: MULTIVITAMIN LIQUID (CENTRUM) 60 ML BOTTLE PO SCH (09:06)
[2017-09-05] MEDS: levETIRAcetam LIQUID 100 MG/ML 30 ML/BOTTLE PEG SCH ×2 (09:06→22:37)
[2017-09-05] MEDS: BRIMONIDINE 0.2% OPH SOLN 5 ML BOTTLE BOTH EYES SCH ×2 (09:06→22:37)
[2017-09-05] MEDS: FERROUS SULFATE 300 MG/5 ML UDCUP PER TUBE SCH (09:06)
[2017-09-05 14:13] LABS: Alanine Aminotransferase 18 U/L (13-56); Alkaline Phosphatase 114 U/L (45-117); Aspartate Amino Transferase 25 U/L (0-37)
[2017-09-05 14:14] LABS: Albumin 1.8 G/DL (3.4-5.0); Bilirubin,Total < 0.39 MG/DL (0.2-1.0); Blood Urea Nitrogen 22 MG/DL (7-18); Glucose 146 MG/DL (74-106); Osmolality,Calculated 282.5 MOS/KG (273-304); Potassium 4.3 MMOL/L (3.5-5.1); Sodium 139 MMOL/L (136-145)
[2017-09-05] MEDS ORDERED: TUBERCULIN SKIN TEST 0.1 ML SYRINGE INTRADERM ONE (14:32)
[2017-09-05] MEDS: BIMATOPROST 0.01% OPH SOLN 2.5 ML BOTTLE BOTH EYES SCH (22:37)
[2017-09-05] MEDS: ENOXAPARIN 40 MG/0.4 ML SYRINGE SUBCUT SCH (22:38)
[2017-09-06] MEDS: IPRATROPIUM 500 MCG/2.5 ML NEB RESP TX SCH ×3 (00:07→13:37)
[2017-09-06] MEDS: LEVALBUTEROL 0.63 MG/3 ML NEB RESP TX SCH ×3 (00:08→13:37)
[2017-09-06] MEDS: ceFAZolin 1,000 MG in SYRINGE 1 EACH IV SCH ×2 (01:53→12:14)
[2017-09-06] MEDS: INSULIN LISPRO 100 UNIT/ML SUBCUT SCH ×3 (01:55→12:16)
[2017-09-06] MEDS: PHENYTOIN 100 MG/4 ML UDCUP PEG SCH (09:39)
[2017-09-06] MEDS: FERROUS SULFATE 300 MG/5 ML UDCUP PER TUBE SCH (09:39)
[2017-09-06] MEDS: DOCUSATE SODIUM 100 MG/10 ML UDCUP PO SCH (09:39)
[2017-09-06] MEDS: levETIRAcetam LIQUID 100 MG/ML 30 ML/BOTTLE PEG SCH (09:39)
[2017-09-06] MEDS: PANTOPRAZOLE 40 MG VIAL IV SCH (09:40)
[2017-09-06] MEDS: BRIMONIDINE 0.2% OPH SOLN 5 ML BOTTLE BOTH EYES SCH (09:41)
[2017-09-06] MEDS: ASPIRIN CHEW 81 MG TABLET PO SCH (09:41)
[2017-09-06] MEDS: BACITRACIN OINT 0.9 GM PACK TOP SCH (09:43)
[2017-09-06] MEDS: MULTIVITAMIN LIQUID (CENTRUM) 60 ML BOTTLE PO SCH (13:51)
[2017-09-06 16:49] VITALS: BP 107/55
== END 2017-09-06 16:49 | DRG 871 ==
LOC: EDBD → EDUNIT# → N.ED 16:18 → N.EDINP 20:24 → N.5E 21:05
PROVIDERS: ADMIT Internal Medicine; ATTEND Internal Medicine

== ENCOUNTER 2017-10-13 21:42 | Inpatient (IN) ==
[2017-10-13] MEDS ORDERED: cefTRIAXone 1,000 MG in SODIUM CHLORIDE 0.9% 100 ML IV STA (23:31)
[2017-10-13] MEDS ORDERED: AZITHROMYCIN INJ 500 MG in SODIUM CHLORIDE 0.9% 250 ML IV STA (23:31)
[2017-10-14] MEDS ORDERED: AZITHROMYCIN 500 MG VIAL IV ONE (00:23)
[2017-10-14] MEDS ORDERED: cefTRIAXone 1,000 MG VIAL ONE (00:24)
[2017-10-14 01:06] LABS: Basophils % 0.3 % (0.0-0.8); Eosinophils # 0.6 10*3/uL (0.0-0.87); Eosinophils % 6.1 % (0.00-10.9); Hematocrit 24.1 VOL% (35.7-47.0); Immature Granulocytes % 0.6 %; Immature Granulocytes Absolute 0.06 #; Lymphocytes # 2.1 10*3/uL (1.4-4.0); Lymphocytes % 21.1 % (21.3-54.2); Mean Corpuscular HGB Conc 29.5 GM/DL (32-36); Mean Corpuscular Hemoglobin 34 PG (27-34); Mean Corpuscular Volume 114.8 FL (87-102); Mean Platelet Volume 14.1 FL (9.6-12.0); Monocytes # 0.8 10*3/uL (0.11-0.8); Monocytes % 7.7 % (1.7-12.7); NRBC # 0.02 10*3/uL; Neutrophils # 6.4 10*3/uL (1.4-7.4); Neutrophils % 64.2 % (38.7-73.9); Platelet Count 122 T/CUMM (130-400); Red Cell Distribution Width 17.7 % (9.3-17.3)
[2017-10-14 01:12] LABS: Hemoglobin 7.1 GM/DL (12.0-16.0)
[2017-10-14 01:41] LABS: Alanine Aminotransferase 17 U/L (13-56); Albumin 2.5 G/DL (3.4-5.0); Alkaline Phosphatase 106 U/L (45-117); Aspartate Amino Transferase 18 U/L (0-37); Bilirubin,Total < 0.39 MG/DL (0.2-1.0); Blood Urea Nitrogen 62 MG/DL (7-18); Calcium 9.6 MG/DL (8.5-10.1); Glucose 426 MG/DL (74-106); Potassium 3.7 MMOL/L (3.5-5.1); Sodium 157 MMOL/L (136-145); Total Protein 8.1 G/DL (6.4-8.3)
[2017-10-14 02:00] LABS: Anisocytosis 1+; Macrocytosis 1+; Target Cells Slight
[2017-10-14] MEDS ORDERED: SODIUM CHLORIDE 0.9% 1,000 ML IV STA (03:00)
[2017-10-14] MEDS ORDERED: ONDANSETRON 4 MG/2 ML VIAL IV PRN (03:01)
[2017-10-14] MEDS ORDERED: DEXTROSE 5% 1,000 ML IV SCH (03:30)
[2017-10-14 03:48] LABS: Apearance,Urine CLOUDY (Clear); Bilirubin,Urine Negative (Negative); Blood, Urine Moderate mg/dL (Negative); Glucose,Urine (UA) >=500 mg/dL (Negative); Ketones,Urine Negative (Negative); Nitrite,Urine Negative (Negative); Protein,Urine 30 MG/DL; RBC,Urine 78 /HPF (0-4); Urine Color Yellow (Yellow); Urine Urobilinogen < 2.0 EU/DL (0.2-1.0); WBC,Urine 53 /HPF (0-6)
[2017-10-14] MEDS ORDERED: INSULIN REGULAR 100 UNIT/ML IV ONE (04:24)
[2017-10-14] MEDS ORDERED: INSULIN REGULAR 100 UNIT/ML ONE (04:38)
[2017-10-14] MEDS: SODIUM CHLORIDE 0.9% 1,000 ML IV SCH ×2 (06:56→22:41)
[2017-10-14] MEDS: DOCUSATE SODIUM 100 MG CAPSULE PO SCH ×2 (08:31→21:33)
[2017-10-14] MEDS: INSULIN REGULAR 100 UNIT/ML SUBCUT SCH ×5 (08:43→21:39)
[2017-10-14] MEDS ORDERED: PANTOPRAZOLE 40 MG TABLET PO SCH (09:00)
[2017-10-14] MEDS ORDERED: DEXTROSE 50% 25 GM/50 ML VIAL IV PRN (10:04)
[2017-10-14] MEDS ORDERED: GLUCAGON 1 MG VIAL IM PRN (10:04)
[2017-10-14] MEDS: SILVER SULFADIAZINE 1% CREAM 25 GM TUBE TOP SCH (17:08)
[2017-10-14] MEDS ORDERED: SODIUM CHLORIDE 0.9% 1,000 ML IV PRN (18:21)
[2017-10-14] MEDS: ALBUTEROL/IPRATROPIUM 3 ML NEB RESP TX SCH ×2 (19:52→23:10)
[2017-10-14] MEDS: SODIUM CHLORIDE 0.45% 1,000 ML IV SCH (21:26)
[2017-10-14] MEDS: levETIRAcetam LIQUID 100 MG/ML 30 ML/BOTTLE PEG SCH (21:26)
[2017-10-14] MEDS: cefTRIAXone 500 MG in SYRINGE 1 EACH IV SCH (21:27)
[2017-10-14] MEDS: methylPREDNISolone SOD SUC 40 MG/1 ML VIAL IV SCH (21:28)
[2017-10-14] MEDS: AZITHROMYCIN INJ 250 MG in SODIUM CHLORIDE 0.9% 250 ML IV SCH (21:29)
[2017-10-14] MEDS: hydrALAZINE 25 MG TABLET PO SCH (21:34)
[2017-10-14] MEDS: DILTIAZEM 60 MG TABLET PO SCH (21:34)
[2017-10-14] MEDS: INSULIN GLARGINE 100 UNIT/ML SUBCUT SCH (21:35)
[2017-10-14] MEDS: BIMATOPROST 0.01% OPH SOLN 2.5 ML BOTTLE BOTH EYES SCH (21:39)
[2017-10-14] MEDS: POLYVINYL ALCOHOL 1.4% OPH SOLN 15 ML BOTTLE BOTH EYES SCH (21:39)
[2017-10-15] MEDS: ALBUTEROL/IPRATROPIUM 3 ML NEB RESP TX SCH ×6 (03:56→23:07)
[2017-10-15] MEDS: SODIUM CHLORIDE 0.45% 1,000 ML IV SCH ×2 (05:39→15:30)
[2017-10-15] MEDS: methylPREDNISolone SOD SUC 40 MG/1 ML VIAL IV SCH ×3 (06:30→21:48)
[2017-10-15] MEDS: INSULIN REGULAR 100 UNIT/ML SUBCUT SCH ×7 (06:31→21:54)
[2017-10-15 06:42] LABS: Basophils % 0.5 % (0.0-0.8); Eosinophils % 0.2 % (0.00-10.9); Hematocrit 37.4 VOL% (35.7-47.0); Hemoglobin 11.4 GM/DL (12.0-16.0); Immature Granulocytes % 1.5 %; Lymphocytes # 1.2 10*3/uL (1.4-4.0); Lymphocytes % 18.6 % (21.3-54.2); Mean Corpuscular HGB Conc 30.5 GM/DL (32-36); Mean Corpuscular Hemoglobin 31 PG (27-34); Mean Corpuscular Volume 102.7 FL (87-102); Mean Platelet Volume 13.6 FL (9.6-12.0); Monocytes # 0.3 10*3/uL (0.11-0.8); Monocytes % 4.2 % (1.7-12.7); Neutrophils # 4.9 10*3/uL (1.4-7.4); Red Blood Count 3.64 MC/CUMM (3.8-5.5); Red Cell Distribution Width 23.3 % (9.3-17.3); White Blood Count 6.5 T/CUMM (4-12)
[2017-10-15 06:45] LABS: Platelet Count 78 T/CUMM (130-400)
[2017-10-15 07:01] LABS: Band Neutrophils 3 % (0-10); Eosinophils 1 % (0-10); Giant Platelets Few; Hypochromasia 1+; Lymphocytes 17 % (20-55); Nucleated Red Blood Cells 1 (0-5); Ovalocytes Slight; Platelet Estimate Decreased; Segmented Neutrophils 76 % (50-85); Total Cells Counted 100
[2017-10-15 07:02] LABS: Macrocytosis Slight
[2017-10-15 07:11] LABS: Calcium 8.5 MG/DL (8.5-10.1); Osmolality,Calculated 334.9 MOS/KG (273-304); Potassium 3.8 MMOL/L (3.5-5.1); Prealbumin 10.4 MG/DL (20-40)
[2017-10-15 07:12] LABS: Albumin 2.1 G/DL (3.4-5.0); Bilirubin,Total 0.4 MG/DL (0.2-1.0); Calcium 8.3 MG/DL (8.5-10.1); Osmolality,Calculated 332.9 MOS/KG (273-304); Potassium 3.8 MMOL/L (3.5-5.1); Total Protein 6.8 G/DL (6.4-8.3)
[2017-10-15] MEDS: BUDESONIDE 0.25 MG/2 ML NEB RESP TX SCH (07:29)
[2017-10-15] MEDS ORDERED: SILVER SULFADIAZINE 1% TOP SCH (09:00)
[2017-10-15] MEDS ORDERED: INSULIN GLARGINE 100 UNIT/ML SUBCUT SCH ×3 (09:00→22:11)
[2017-10-15] MEDS: NITROFURANTOIN MACROCRYSTALS 50 MG CAPSULE PO SCH (10:09)
[2017-10-15] MEDS: DOCUSATE SODIUM 100 MG CAPSULE PO SCH ×2 (10:09→21:53)
[2017-10-15] MEDS: ASPIRIN CHEW 81 MG TABLET PO SCH (10:09)
[2017-10-15] MEDS: POLYVINYL ALCOHOL 1.4% OPH SOLN 15 ML BOTTLE BOTH EYES SCH ×4 (10:10→21:56)
[2017-10-15] MEDS: LISINOPRIL 5 MG TABLET PEG SCH (10:10)
[2017-10-15] MEDS: hydrALAZINE 25 MG TABLET PO SCH ×2 (10:10→21:53)
[2017-10-15] MEDS: DILTIAZEM 60 MG TABLET PO SCH ×2 (10:10→21:52)
[2017-10-15] MEDS: FERROUS SULFATE 300 MG/5 ML UDCUP PER TUBE SCH (10:13)
[2017-10-15] MEDS: PHENYTOIN 100 MG/4 ML UDCUP PEG SCH (10:13)
[2017-10-15] MEDS: levETIRAcetam LIQUID 100 MG/ML 30 ML/BOTTLE PEG SCH ×2 (10:14→21:52)
[2017-10-15] MEDS: MULTIVITAMIN LIQUID (CENTRUM) 60 ML BOTTLE PO SCH (10:14)
[2017-10-15] MEDS: MULTIVITAMIN LIQUID (CENTRUM) 60 ML BOTTLE PER TUBE SCH (10:15)
[2017-10-15] MEDS: COLLAGENASE OINT 30 GM TUBE TOP SCH (15:34)
[2017-10-15] MEDS: SILVER SULFADIAZINE 1% CREAM 25 GM TUBE TOP SCH (15:34)
[2017-10-15] MEDS: cefTRIAXone 500 MG in SYRINGE 1 EACH IV SCH (21:43)
[2017-10-15] MEDS: AZITHROMYCIN INJ 250 MG in SODIUM CHLORIDE 0.9% 250 ML IV SCH (21:51)
[2017-10-15] MEDS: BIMATOPROST 0.01% OPH SOLN 2.5 ML BOTTLE BOTH EYES SCH (21:56)
[2017-10-15] MEDS: INSULIN GLARGINE 100 UNIT/ML SUBCUT SCH (22:00)
[2017-10-15] MEDS ORDERED: DEXTROSE 5% 1,000 ML IV SCH (22:30)
[2017-10-16] MEDS: ALBUTEROL/IPRATROPIUM 3 ML NEB RESP TX SCH ×6 (04:05→23:44)
[2017-10-16] MEDS ORDERED: FUROSEMIDE 40 MG/4 ML VIAL ONE (04:07)
[2017-10-16] MEDS: methylPREDNISolone SOD SUC 40 MG/1 ML VIAL IV SCH ×3 (04:19→21:54)
[2017-10-16] MEDS ORDERED: FUROSEMIDE 20 MG/2 ML VIAL IV ONE (04:30)
[2017-10-16] MEDS: BUDESONIDE 0.25 MG/2 ML NEB RESP TX SCH (07:10)
[2017-10-16] MEDS: INSULIN REGULAR 100 UNIT/ML SUBCUT SCH ×8 (07:12→21:58)
[2017-10-16 08:16] LABS: Basophils % 0.2 % (0.0-0.8); Eosinophils % 0.1 % (0.00-10.9); Immature Granulocytes % 0.9 %; Immature Granulocytes Absolute 0.11 #; Lymphocytes # 1.4 10*3/uL (1.4-4.0); Lymphocytes % 10.9 % (21.3-54.2); Mean Corpuscular HGB Conc 30.8 GM/DL (32-36); Mean Corpuscular Hemoglobin 31 PG (27-34); Mean Corpuscular Volume 101.6 FL (87-102); Mean Platelet Volume 13.5 FL (9.6-12.0); Monocytes # 0.5 10*3/uL (0.11-0.8); Monocytes % 3.8 % (1.7-12.7); NRBC # 0.15 10*3/uL; Neutrophils # 10.8 10*3/uL (1.4-7.4); Neutrophils % 84.1 % (38.7-73.9); Red Blood Count 3.84 MC/CUMM (3.8-5.5); Red Cell Distribution Width 22.7 % (9.3-17.3); White Blood Count 12.8 T/CUMM (4-12)
[2017-10-16 08:22] LABS: Platelet Count 73 T/CUMM (130-400)
[2017-10-16 08:50] LABS: Alanine Aminotransferase 19 U/L (13-56); Albumin 2.2 G/DL (3.4-5.0); Alkaline Phosphatase 102 U/L (45-117); Aspartate Amino Transferase 28 U/L (0-37); Bilirubin,Total < 0.39 MG/DL (0.2-1.0); Blood Urea Nitrogen 32 MG/DL (7-18); Calcium 8.8 MG/DL (8.5-10.1); Glucose 204 MG/DL (74-106); Osmolality,Calculated 317.4 MOS/KG (273-304); Potassium 3.6 MMOL/L (3.5-5.1); Sodium 154 MMOL/L (136-145); Total Protein 7.5 G/DL (6.4-8.3)
[2017-10-16 08:53] LABS: Calcium 8.8 MG/DL (8.5-10.1); Osmolality,Calculated 315.6 MOS/KG (273-304); Potassium 3.6 MMOL/L (3.5-5.1); Prealbumin 14.1 MG/DL (20-40)
[2017-10-16 08:56] LABS: Giant Platelets Few; Hypochromasia 1+; Lymphocytes 4 % (20-55); Nucleated Red Blood Cells 1 (0-5); Ovalocytes Slight; Platelet Estimate Decreased; Segmented Neutrophils 93 % (50-85); Total Cells Counted 100
[2017-10-16] MEDS: FERROUS SULFATE 300 MG/5 ML UDCUP PER TUBE SCH (09:17)
[2017-10-16] MEDS: PHENYTOIN 100 MG/4 ML UDCUP PEG SCH (09:17)
[2017-10-16] MEDS: DOCUSATE SODIUM 100 MG CAPSULE PO SCH ×2 (09:18→21:59)
[2017-10-16] MEDS: DILTIAZEM 60 MG TABLET PO SCH ×2 (09:18→21:53)
[2017-10-16] MEDS: LISINOPRIL 5 MG TABLET PEG SCH (09:18)
[2017-10-16] MEDS: ASPIRIN CHEW 81 MG TABLET PO SCH (09:18)
[2017-10-16] MEDS: NITROFURANTOIN MACROCRYSTALS 50 MG CAPSULE PO SCH (09:18)
[2017-10-16] MEDS: MULTIVITAMIN LIQUID (CENTRUM) 60 ML BOTTLE PER TUBE SCH (09:18)
[2017-10-16] MEDS: hydrALAZINE 25 MG TABLET PO SCH ×2 (09:18→21:54)
[2017-10-16] MEDS: COLLAGENASE OINT 30 GM TUBE TOP SCH (09:19)
[2017-10-16] MEDS: MULTIVITAMIN LIQUID (CENTRUM) 60 ML BOTTLE PO SCH (09:19)
[2017-10-16] MEDS: POLYVINYL ALCOHOL 1.4% OPH SOLN 15 ML BOTTLE BOTH EYES SCH ×4 (09:20→22:03)
[2017-10-16] MEDS: levETIRAcetam LIQUID 100 MG/ML 30 ML/BOTTLE PEG SCH ×2 (09:20→22:03)
[2017-10-16] MEDS: cefTRIAXone 500 MG in SYRINGE 1 EACH IV SCH (18:43)
[2017-10-16] MEDS: AZITHROMYCIN INJ 250 MG in SODIUM CHLORIDE 0.9% 250 ML IV SCH (22:01)
[2017-10-16] MEDS: BIMATOPROST 0.01% OPH SOLN 2.5 ML BOTTLE BOTH EYES SCH (22:03)
[2017-10-17] MEDS: PIPERACILLIN/TAZOBACTAM 3,375 MG in SODIUM CHLORIDE 0.9% 100 ML IV SCH ×4 (00:17→23:51)
[2017-10-17] MEDS: ALBUTEROL/IPRATROPIUM 3 ML NEB RESP TX SCH ×6 (03:26→21:05)
[2017-10-17] MEDS: methylPREDNISolone SOD SUC 40 MG/1 ML VIAL IV SCH ×3 (04:39→21:10)
[2017-10-17] MEDS: INSULIN REGULAR 100 UNIT/ML SUBCUT SCH ×7 (06:18→23:40)
[2017-10-17 07:27] LABS: Basophils % 0.1 % (0.0-0.8); Hemoglobin 11.2 GM/DL (12.0-16.0); Immature Granulocytes % 0.7 %; Immature Granulocytes Absolute 0.08 #; Lymphocytes # 0.7 10*3/uL (1.4-4.0); Lymphocytes % 5.9 % (21.3-54.2); Mean Corpuscular HGB Conc 31.1 GM/DL (32-36); Mean Corpuscular Hemoglobin 31 PG (27-34); Mean Corpuscular Volume 100.8 FL (87-102); Monocytes # 0.2 10*3/uL (0.11-0.8); NRBC # 0.17 10*3/uL; Neutrophils % 91.3 % (38.7-73.9); Red Blood Count 3.57 MC/CUMM (3.8-5.5); Red Cell Distribution Width 20.8 % (9.3-17.3); White Blood Count 10.9 T/CUMM (4-12)
[2017-10-17 07:31] LABS: Platelet Count 76 T/CUMM (130-400)
[2017-10-17] MEDS: BUDESONIDE 0.25 MG/2 ML NEB RESP TX SCH ×2 (07:43→15:22)
[2017-10-17 07:48] LABS: Calcium 8.6 MG/DL (8.5-10.1); Potassium 3.7 MMOL/L (3.5-5.1)
[2017-10-17 07:49] LABS: Band Neutrophils 3 % (0-10); Lymphocytes 4 % (20-55); Nucleated Red Blood Cells 1 (0-5); Segmented Neutrophils 92 % (50-85); Total Cells Counted 100
[2017-10-17 07:50] LABS: Hypochromasia 1+; Macrocytosis 1+; Platelet Estimate Decreased
[2017-10-17] MEDS: POLYVINYL ALCOHOL 1.4% OPH SOLN 15 ML BOTTLE BOTH EYES SCH ×4 (09:18→22:24)
[2017-10-17] MEDS: FERROUS SULFATE 300 MG/5 ML UDCUP PER TUBE SCH (09:18)
[2017-10-17] MEDS: DILTIAZEM 60 MG TABLET PO SCH ×2 (09:18→22:26)
[2017-10-17] MEDS: DOCUSATE SODIUM 100 MG CAPSULE PO SCH ×2 (09:18→22:27)
[2017-10-17] MEDS: LISINOPRIL 5 MG TABLET PEG SCH (09:18)
[2017-10-17] MEDS: ASPIRIN CHEW 81 MG TABLET PO SCH (09:18)
[2017-10-17] MEDS: hydrALAZINE 25 MG TABLET PO SCH ×2 (09:18→22:27)
[2017-10-17] MEDS: MULTIVITAMIN LIQUID (CENTRUM) 60 ML BOTTLE PO SCH (09:18)
[2017-10-17] MEDS: COLLAGENASE OINT 30 GM TUBE TOP SCH (09:19)
[2017-10-17] MEDS: PHENYTOIN 100 MG/4 ML UDCUP PEG SCH (09:19)
[2017-10-17] MEDS: levETIRAcetam LIQUID 100 MG/ML 30 ML/BOTTLE PEG SCH ×2 (09:19→22:27)
[2017-10-17] MEDS: INSULIN GLARGINE 100 UNIT/ML SUBCUT SCH ×2 (09:19→22:40)
[2017-10-17] MEDS: MULTIVITAMIN LIQUID (CENTRUM) 60 ML BOTTLE PER TUBE SCH (09:19)
[2017-10-17] MEDS: SCOPOLAMINE 1.5 MG PATCH TRANSDERM SCH (18:31)
[2017-10-17] MEDS: BIMATOPROST 0.01% OPH SOLN 2.5 ML BOTTLE BOTH EYES SCH (22:24)
[2017-10-18] MEDS: ALBUTEROL/IPRATROPIUM 3 ML NEB RESP TX SCH ×7 (00:12→23:49)
[2017-10-18] MEDS: methylPREDNISolone SOD SUC 40 MG/1 ML VIAL IV SCH ×3 (06:46→21:25)
[2017-10-18 07:09] LABS: Basophils % 0.1 % (0.0-0.8); Hematocrit 35.8 VOL% (35.7-47.0); Hemoglobin 11.7 GM/DL (12.0-16.0); Immature Granulocytes % 0.8 %; Immature Granulocytes Absolute 0.09 #; Lymphocytes # 0.7 10*3/uL (1.4-4.0); Lymphocytes % 6.7 % (21.3-54.2); Mean Corpuscular HGB Conc 32.7 GM/DL (32-36); Mean Corpuscular Hemoglobin 32 PG (27-34); Mean Corpuscular Volume 98.4 FL (87-102); Mean Platelet Volume 13.8 FL (9.6-12.0); Monocytes # 0.3 10*3/uL (0.11-0.8); Monocytes % 3.1 % (1.7-12.7); NRBC # 0.06 10*3/uL; Neutrophils # 9.5 10*3/uL (1.4-7.4); Neutrophils % 89.3 % (38.7-73.9); Platelet Count 89 T/CUMM (130-400); Red Blood Count 3.64 MC/CUMM (3.8-5.5); Red Cell Distribution Width 20.2 % (9.3-17.3); White Blood Count 10.6 T/CUMM (4-12)
[2017-10-18 07:41] LABS: Band Neutrophils 2 % (0-10); Lymphocytes 4 % (20-55); Segmented Neutrophils 93 % (50-85); Total Cells Counted 100
[2017-10-18 07:42] LABS: Hypochromasia 1+
[2017-10-18 07:43] LABS: Anisocytosis 1+; Macrocytosis Slight; Platelet Estimate Decreased
[2017-10-18] MEDS: BUDESONIDE 0.25 MG/2 ML NEB RESP TX SCH (07:53)
[2017-10-18] MEDS: PIPERACILLIN/TAZOBACTAM 3,375 MG in SODIUM CHLORIDE 0.9% 100 ML IV SCH ×3 (08:13→23:05)
[2017-10-18] MEDS: INSULIN REGULAR 100 UNIT/ML SUBCUT SCH ×6 (10:23→21:23)
[2017-10-18] MEDS: INSULIN GLARGINE 100 UNIT/ML SUBCUT SCH ×2 (10:24→21:22)
[2017-10-18] MEDS: hydrALAZINE 25 MG TABLET PO SCH ×2 (10:25→21:24)
[2017-10-18] MEDS: POLYVINYL ALCOHOL 1.4% OPH SOLN 15 ML BOTTLE BOTH EYES SCH ×4 (10:25→21:26)
[2017-10-18] MEDS: DILTIAZEM 60 MG TABLET PO SCH ×2 (10:25→21:24)
[2017-10-18] MEDS: LISINOPRIL 5 MG TABLET PEG SCH (10:25)
[2017-10-18] MEDS: FERROUS SULFATE 300 MG/5 ML UDCUP PER TUBE SCH (10:26)
[2017-10-18] MEDS: METHENAMINE HIPPURATE 1 GM TABLET PO SCH ×2 (10:26→21:26)
[2017-10-18] MEDS: levETIRAcetam LIQUID 100 MG/ML 30 ML/BOTTLE PEG SCH ×2 (10:26→21:24)
[2017-10-18] MEDS: DOCUSATE SODIUM 100 MG CAPSULE PO SCH ×2 (10:26→21:25)
[2017-10-18] MEDS: MULTIVITAMIN LIQUID (CENTRUM) 60 ML BOTTLE PER TUBE SCH (10:27)
[2017-10-18] MEDS: MULTIVITAMIN LIQUID (CENTRUM) 60 ML BOTTLE PO SCH (10:27)
[2017-10-18] MEDS: ASPIRIN CHEW 81 MG TABLET PO SCH (10:27)
[2017-10-18] MEDS: COLLAGENASE OINT 30 GM TUBE TOP SCH (10:28)
[2017-10-18] MEDS: PHENYTOIN 100 MG/4 ML UDCUP PEG SCH (10:29)
[2017-10-18] MEDS: BIMATOPROST 0.01% OPH SOLN 2.5 ML BOTTLE BOTH EYES SCH (21:25)
[2017-10-19] MEDS: INSULIN REGULAR 100 UNIT/ML SUBCUT SCH ×7 (00:29→21:44)
[2017-10-19] MEDS: ALBUTEROL/IPRATROPIUM 3 ML NEB RESP TX SCH ×4 (03:26→20:14)
[2017-10-19] MEDS: methylPREDNISolone SOD SUC 40 MG/1 ML VIAL IV SCH ×3 (05:38→21:42)
[2017-10-19] MEDS: PIPERACILLIN/TAZOBACTAM 3,375 MG in SODIUM CHLORIDE 0.9% 100 ML IV SCH ×2 (06:02→14:55)
[2017-10-19] MEDS: BUDESONIDE 0.25 MG/2 ML NEB RESP TX SCH (08:25)
[2017-10-19] MEDS ORDERED: TUBERCULIN SKIN TEST 0.1 ML SYRINGE INTRADERM ONE (09:12)
[2017-10-19] MEDS: POLYVINYL ALCOHOL 1.4% OPH SOLN 15 ML BOTTLE BOTH EYES SCH ×4 (10:32→21:50)
[2017-10-19] MEDS: hydrALAZINE 25 MG TABLET PO SCH ×2 (10:34→21:49)
[2017-10-19] MEDS: MULTIVITAMIN LIQUID (CENTRUM) 60 ML BOTTLE PO SCH (10:34)
[2017-10-19] MEDS: DILTIAZEM 60 MG TABLET PO SCH ×2 (10:34→21:41)
[2017-10-19] MEDS: ASPIRIN CHEW 81 MG TABLET PO SCH (10:34)
[2017-10-19] MEDS: DOCUSATE SODIUM 100 MG CAPSULE PO SCH ×2 (10:35→21:41)
[2017-10-19] MEDS: MULTIVITAMIN LIQUID (CENTRUM) 60 ML BOTTLE PER TUBE SCH (10:37)
[2017-10-19] MEDS: PHENYTOIN 100 MG/4 ML UDCUP PEG SCH (10:37)
[2017-10-19] MEDS: FERROUS SULFATE 300 MG/5 ML UDCUP PER TUBE SCH (10:39)
[2017-10-19] MEDS: METHENAMINE HIPPURATE 1 GM TABLET PO SCH ×2 (10:39→21:41)
[2017-10-19] MEDS: INSULIN GLARGINE 100 UNIT/ML SUBCUT SCH ×2 (10:40→21:43)
[2017-10-19] MEDS: levETIRAcetam LIQUID 100 MG/ML 30 ML/BOTTLE PEG SCH ×2 (10:40→21:43)
[2017-10-19] MEDS: SKIN HEALING OINT (AQUAPHOR) 50 GM TUBE TOP PRN (10:41)
[2017-10-19] MEDS: LISINOPRIL 5 MG TABLET PEG SCH (10:41)
[2017-10-19] MEDS: COLLAGENASE OINT 30 GM TUBE TOP SCH (10:42)
[2017-10-19] MEDS: BIMATOPROST 0.01% OPH SOLN 2.5 ML BOTTLE BOTH EYES SCH (21:43)
[2017-10-20] MEDS: ALBUTEROL/IPRATROPIUM 3 ML NEB RESP TX SCH ×6 (00:49→22:57)
[2017-10-20] MEDS: INSULIN REGULAR 100 UNIT/ML SUBCUT SCH ×7 (03:01→23:00)
[2017-10-20] MEDS: methylPREDNISolone SOD SUC 40 MG/1 ML VIAL IV SCH ×4 (03:28→22:59)
[2017-10-20] MEDS: PIPERACILLIN/TAZOBACTAM 3,375 MG in SODIUM CHLORIDE 0.9% 100 ML IV SCH ×3 (03:30→19:48)
[2017-10-20 06:08] LABS: Calcium 8.1 MG/DL (8.5-10.1); Osmolality,Calculated 298.8 MOS/KG (273-304); Potassium 4.3 MMOL/L (3.5-5.1); Prealbumin 16.9 MG/DL (20-40)
[2017-10-20] MEDS: BUDESONIDE 0.25 MG/2 ML NEB RESP TX SCH (07:22)
[2017-10-20] MEDS: METHENAMINE HIPPURATE 1 GM TABLET PO SCH (10:05)
[2017-10-20] MEDS: ASPIRIN CHEW 81 MG TABLET PO SCH (11:30)
[2017-10-20] MEDS: hydrALAZINE 25 MG TABLET PO SCH ×2 (11:30→22:59)
[2017-10-20] MEDS: DILTIAZEM 60 MG TABLET PO SCH ×2 (11:30→22:59)
[2017-10-20] MEDS: MULTIVITAMIN LIQUID (CENTRUM) 60 ML BOTTLE PO SCH (11:30)
[2017-10-20] MEDS: POLYVINYL ALCOHOL 1.4% OPH SOLN 15 ML BOTTLE BOTH EYES SCH ×4 (11:30→23:02)
[2017-10-20] MEDS: INSULIN GLARGINE 100 UNIT/ML SUBCUT SCH ×2 (11:35→22:59)
[2017-10-20] MEDS: FERROUS SULFATE 300 MG/5 ML UDCUP PER TUBE SCH (11:35)
[2017-10-20] MEDS: DOCUSATE SODIUM 100 MG CAPSULE PO SCH ×2 (11:35→22:58)
[2017-10-20] MEDS: PHENYTOIN 100 MG/4 ML UDCUP PEG SCH (11:35)
[2017-10-20] MEDS: levETIRAcetam LIQUID 100 MG/ML 30 ML/BOTTLE PEG SCH ×2 (11:36→23:00)
[2017-10-20] MEDS: SCOPOLAMINE 1.5 MG PATCH TRANSDERM SCH (11:38)
[2017-10-20] MEDS: LISINOPRIL 5 MG TABLET PEG SCH (11:38)
[2017-10-20] MEDS: MULTIVITAMIN LIQUID (CENTRUM) 60 ML BOTTLE PER TUBE SCH (11:40)
[2017-10-20] MEDS: SKIN HEALING OINT (AQUAPHOR) 50 GM TUBE TOP PRN (13:50)
[2017-10-20] MEDS: COLLAGENASE OINT 30 GM TUBE TOP SCH (13:55)
[2017-10-20] MEDS: BIMATOPROST 0.01% OPH SOLN 2.5 ML BOTTLE BOTH EYES SCH (23:02)
[2017-10-21] MEDS: ALBUTEROL/IPRATROPIUM 3 ML NEB RESP TX SCH ×5 (03:17→23:37)
[2017-10-21 05:15] LABS: Basophils % 0.1 % (0.0-0.8); Hematocrit 36.2 VOL% (35.7-47.0); Hemoglobin 11.4 GM/DL (12.0-16.0); Immature Granulocytes Absolute 0.11 #; Lymphocytes # 0.5 10*3/uL (1.4-4.0); Lymphocytes % 4.9 % (21.3-54.2); Mean Corpuscular HGB Conc 31.5 GM/DL (32-36); Mean Corpuscular Hemoglobin 32 PG (27-34); Mean Corpuscular Volume 100.6 FL (87-102); Monocytes # 0.3 10*3/uL (0.11-0.8); Monocytes % 2.4 % (1.7-12.7); NRBC # 0.02 10*3/uL; Neutrophils # 9.8 10*3/uL (1.4-7.4); Neutrophils % 91.6 % (38.7-73.9); Platelet Count 101 T/CUMM (130-400); Red Cell Distribution Width 19.1 % (9.3-17.3); White Blood Count 10.7 T/CUMM (4-12)
[2017-10-21 05:42] LABS: Band Neutrophils 1 % (0-10); Giant Platelets Few; Hypochromasia 1+; Lymphocytes 3 % (20-55); Ovalocytes Slight; Platelet Estimate Decreased; Segmented Neutrophils 94 % (50-85); Total Cells Counted 100
[2017-10-21 05:43] LABS: Macrocytosis Slight
[2017-10-21 05:44] LABS: Calcium 8.4 MG/DL (8.5-10.1); Osmolality,Calculated 296.7 MOS/KG (273-304); Potassium 4.5 MMOL/L (3.5-5.1)
[2017-10-21] MEDS: BUDESONIDE 0.25 MG/2 ML NEB RESP TX SCH (07:35)
[2017-10-21] MEDS: INSULIN REGULAR 100 UNIT/ML SUBCUT SCH ×8 (08:40→21:58)
[2017-10-21] MEDS: SKIN HEALING OINT (AQUAPHOR) 50 GM TUBE TOP PRN (10:12)
[2017-10-21] MEDS: COLLAGENASE OINT 30 GM TUBE TOP SCH (10:12)
[2017-10-21] MEDS: hydrALAZINE 25 MG TABLET PO SCH ×2 (10:13→21:57)
[2017-10-21] MEDS: DILTIAZEM 60 MG TABLET PO SCH ×2 (10:13→21:57)
[2017-10-21] MEDS: POLYVINYL ALCOHOL 1.4% OPH SOLN 15 ML BOTTLE BOTH EYES SCH ×4 (10:13→21:56)
[2017-10-21] MEDS: ASPIRIN CHEW 81 MG TABLET PO SCH (10:13)
[2017-10-21] MEDS: MULTIVITAMIN LIQUID (CENTRUM) 60 ML BOTTLE PER TUBE SCH (10:14)
[2017-10-21] MEDS: PHENYTOIN 100 MG/4 ML UDCUP PEG SCH (10:15)
[2017-10-21] MEDS: DOCUSATE SODIUM 100 MG CAPSULE PO SCH ×2 (10:15→21:57)
[2017-10-21] MEDS: FERROUS SULFATE 300 MG/5 ML UDCUP PER TUBE SCH (10:16)
[2017-10-21] MEDS: levETIRAcetam LIQUID 100 MG/ML 30 ML/BOTTLE PEG SCH ×2 (10:16→21:58)
[2017-10-21] MEDS: methylPREDNISolone SOD SUC 40 MG/1 ML VIAL IV SCH ×2 (10:17→21:57)
[2017-10-21] MEDS: INSULIN GLARGINE 100 UNIT/ML SUBCUT SCH ×2 (10:17→21:58)
[2017-10-21] MEDS: LISINOPRIL 5 MG TABLET PEG SCH (10:17)
[2017-10-21 12:46] LABS: Apearance,Urine Slightly Hazy (Clear); Bilirubin,Urine Negative (Negative); Blood, Urine Negative (Negative); Glucose,Urine (UA) Negative (Negative); Ketones,Urine Negative (Negative); Mucus,Urine Occasional /LPF (Occasional); Nitrite,Urine Negative (Negative); Protein,Urine Negative; RBC,Urine 10 /HPF (0-4); Squamous Epithelial Cell,Urine Few /HPF (0-10); Urine Color Yellow (Yellow); Urine Specific Gravity 1.018 (1.001-1.035); Urine Urobilinogen < 2.0 EU/DL (0.2-1.0); WBC,Urine 10 /HPF (0-6)
[2017-10-21] MEDS: BIMATOPROST 0.01% OPH SOLN 2.5 ML BOTTLE BOTH EYES SCH (21:56)
[2017-10-22] MEDS: ALBUTEROL/IPRATROPIUM 3 ML NEB RESP TX SCH ×2 (02:11→07:40)
[2017-10-22] MEDS: INSULIN REGULAR 100 UNIT/ML SUBCUT SCH ×2 (05:01→10:09)
[2017-10-22] MEDS: BUDESONIDE 0.25 MG/2 ML NEB RESP TX SCH (07:40)
[2017-10-22 07:42] VITALS: BP 131/62
[2017-10-22] MEDS: LISINOPRIL 5 MG TABLET PEG SCH (09:21)
[2017-10-22] MEDS: ASPIRIN CHEW 81 MG TABLET PO SCH (09:21)
[2017-10-22] MEDS: PHENYTOIN 100 MG/4 ML UDCUP PEG SCH (09:21)
[2017-10-22] MEDS: DILTIAZEM 60 MG TABLET PO SCH (09:21)
[2017-10-22] MEDS: hydrALAZINE 25 MG TABLET PO SCH (09:21)
[2017-10-22] MEDS: FERROUS SULFATE 300 MG/5 ML UDCUP PER TUBE SCH (09:21)
[2017-10-22] MEDS: DOCUSATE SODIUM 100 MG CAPSULE PO SCH (09:25)
[2017-10-22] MEDS: MULTIVITAMIN LIQUID (CENTRUM) 60 ML BOTTLE PER TUBE SCH (09:25)
[2017-10-22] MEDS: POLYVINYL ALCOHOL 1.4% OPH SOLN 15 ML BOTTLE BOTH EYES SCH (09:25)
[2017-10-22] MEDS: levETIRAcetam LIQUID 100 MG/ML 30 ML/BOTTLE PEG SCH (09:25)
[2017-10-22] MEDS: INSULIN GLARGINE 100 UNIT/ML SUBCUT SCH (09:25)
[2017-10-22] MEDS: COLLAGENASE OINT 30 GM TUBE TOP SCH (09:33)
== END 2017-10-22 09:55 | DRG 178 ==
LOC: EDBD → EDUNIT# → N.ED 21:42 → N.EDINP 10-14 03:01 → N.5E 10-14 03:38
PROVIDERS: ADMIT Internal Medicine; ATTEND Internal Medicine

== ENCOUNTER 2018-05-29 13:27 | Inpatient (IN) ==
[2018-05-29 14:43] LABS: Basophils # 0.1 10*3/uL (0.0-0.2); Basophils % 0.7 % (0.0-0.8); Eosinophils # 0.6 10*3/uL (0.0-0.87); Eosinophils % 8.9 % (0.00-10.9); Hematocrit 34.3 VOL% (35.7-47.0); Immature Granulocytes % 0.1 %; Immature Granulocytes Absolute 0.01 #; Lymphocytes # 2.7 10*3/uL (1.4-4.0); Lymphocytes % 39.8 % (21.3-54.2); Mean Corpuscular HGB Conc 32.1 GM/DL (32-36); Mean Corpuscular Hemoglobin 35 PG (27-34); Mean Corpuscular Volume 108.2 FL (87-102); Mean Platelet Volume 11.1 FL (9.6-12.0); Monocytes # 0.8 10*3/uL (0.11-0.8); Monocytes % 11.7 % (1.7-12.7); Neutrophils # 2.6 10*3/uL (1.4-7.4); Neutrophils % 38.8 % (38.7-73.9); Platelet Count 159 T/CUMM (130-400); Red Blood Count 3.17 MC/CUMM (3.8-5.5); Red Cell Distribution Width 14.5 % (9.3-17.3); White Blood Count 6.7 T/CUMM (4-12)
[2018-05-29 15:14] LABS: Alanine Aminotransferase 25 U/L (13-56); Albumin 2.9 G/DL (3.4-5.0); Alkaline Phosphatase 137 U/L (45-117); Aspartate Amino Transferase 26 U/L (0-37); Bilirubin,Total < 0.39 MG/DL (0.2-1.0); Blood Urea Nitrogen 26 MG/DL (7-18); Calcium 9.4 MG/DL (8.5-10.1); Glucose 119 MG/DL (74-106); Osmolality,Calculated 288.1 MOS/KG (273-304); Potassium 4.1 MMOL/L (3.5-5.1); Sodium 142 MMOL/L (136-145); Total Protein 8.4 G/DL (6.4-8.3)
[2018-05-29] MEDS ORDERED: MEROPENEM 1,000 MG in SODIUM CHLORIDE 0.9% 100 ML IV STA (15:48)
[2018-05-29 16:02] LABS: Apearance,Urine CLOUDY (Clear); Bacteria,Urine Moderate /HPF (Few); Bilirubin,Urine Negative (Negative); Blood, Urine Small mg/dL (Negative); Glucose,Urine (UA) Negative (Negative); Ketones,Urine Negative (Negative); Mucus,Urine Many /LPF (Occasional); Nitrite,Urine Negative (Negative); Protein,Urine Negative; RBC,Urine 8 /HPF (0-4); Squamous Epithelial Cell,Urine Occasional /HPF (0-10); Urine Color Yellow (Yellow); Urine Specific Gravity 1.008 (1.001-1.035); Urine Urobilinogen < 2.0 EU/DL (0.2-1.0); WBC,Urine 86 /HPF (0-6)
[2018-05-29] MEDS ORDERED: ONDANSETRON 4 MG/2 ML VIAL IV PRN (16:26)
[2018-05-29] MEDS ORDERED: ACETAMINOPHEN 325 MG TABLET PO PRN (16:26)
[2018-05-29] MEDS ORDERED: DEXTROSE 50% 25 GM/50 ML VIAL IV PRN (17:12)
[2018-05-29] MEDS ORDERED: GLUCAGON 1 MG VIAL IM PRN (17:12)
[2018-05-29] MEDS ORDERED: INFLUENZA VIRUS VACCINE 0.5 ML SYRINGE IM ONE (19:12)
[2018-05-29] MEDS: SODIUM CHLORIDE 0.9% 1,000 ML IV SCH (19:42)
[2018-05-29] MEDS: ENOXAPARIN 40 MG/0.4 ML SYRINGE SUBCUT SCH (19:42)
[2018-05-29] MEDS: SCOPOLAMINE 1.5 MG PATCH TRANSDERM SCH (19:42)
[2018-05-29] MEDS: PIPERACILLIN/TAZOBACTAM 3,375 MG in SODIUM CHLORIDE 0.9% 100 ML IV SCH (19:46)
[2018-05-29] MEDS: INSULIN LISPRO 100 UNIT/ML SUBCUT SCH ×2 (20:12→23:27)
[2018-05-29] MEDS: hydrALAZINE 25 MG TABLET PEG SCH (21:18)
[2018-05-29] MEDS: DOCUSATE SODIUM 100 MG CAPSULE PEG SCH (21:19)
[2018-05-29] MEDS: POLYVINYL ALCOHOL 1.4% OPH SOLN 15 ML BOTTLE BOTH EYES SCH (21:19)
[2018-05-29] MEDS: CALCIUM (CARBONATE)/VITAMIN D 600 MG-400 UNIT TABLET PEG SCH (21:19)
[2018-05-29] MEDS: DILTIAZEM 60 MG TABLET PO SCH (21:19)
[2018-05-29] MEDS: BIMATOPROST 0.01% OPH SOLN 2.5 ML BOTTLE BOTH EYES SCH (21:20)
[2018-05-29] MEDS: levETIRAcetam LIQUID 100 MG/ML 30 ML/BOTTLE PEG SCH (21:20)
[2018-05-30] MEDS: PIPERACILLIN/TAZOBACTAM 3,375 MG in SODIUM CHLORIDE 0.9% 100 ML IV SCH ×3 (03:11→23:13)
[2018-05-30 04:38] LABS: Basophils % 0.5 % (0.0-0.8); Eosinophils # 0.5 10*3/uL (0.0-0.87); Eosinophils % 8.5 % (0.00-10.9); Hemoglobin 10.1 GM/DL (12.0-16.0); Immature Granulocytes % 0.2 %; Immature Granulocytes Absolute 0.01 #; Lymphocytes # 2.1 10*3/uL (1.4-4.0); Lymphocytes % 38.4 % (21.3-54.2); Mean Corpuscular HGB Conc 32.6 GM/DL (32-36); Mean Corpuscular Hemoglobin 35 PG (27-34); Mean Platelet Volume 11.9 FL (9.6-12.0); Monocytes # 0.7 10*3/uL (0.11-0.8); Monocytes % 12.7 % (1.7-12.7); Neutrophils # 2.2 10*3/uL (1.4-7.4); Neutrophils % 39.7 % (38.7-73.9); Platelet Count 153 T/CUMM (130-400); Red Blood Count 2.87 MC/CUMM (3.8-5.5); Red Cell Distribution Width 14.1 % (9.3-17.3); White Blood Count 5.5 T/CUMM (4-12)
[2018-05-30 04:56] LABS: Calcium 9.3 MG/DL (8.5-10.1); Osmolality,Calculated 290.7 MOS/KG (273-304); Potassium 3.7 MMOL/L (3.5-5.1); Risk Ratio 2.36; VLDL CHOLESTEROL 19.2 MG/DL
[2018-05-30] MEDS: INSULIN LISPRO 100 UNIT/ML SUBCUT SCH ×3 (06:14→17:40)
[2018-05-30 08:12] LABS: % Iron Saturation 69.1 % (18-50); Ferritin 49.6 ng/ml (8-252)
[2018-05-30 09:39] LABS: Folate > 24.0 NG/ML (5.4-24.0); Vitamin B12 1325 PG/ML (211-911)
[2018-05-30] MEDS: FLUCONAZOLE 40 MG/ML 35 ML/BOTTLE PO SCH (10:22)
[2018-05-30] MEDS: PHENYTOIN 100 MG/4 ML UDCUP PEG SCH (10:22)
[2018-05-30] MEDS: FERROUS SULFATE 300 MG/5 ML UDCUP PEG SCH (10:22)
[2018-05-30] MEDS: POLYVINYL ALCOHOL 1.4% OPH SOLN 15 ML BOTTLE BOTH EYES SCH ×4 (10:23→21:20)
[2018-05-30] MEDS: CALCIUM (CARBONATE)/VITAMIN D 600 MG-400 UNIT TABLET PEG SCH ×2 (10:24→21:19)
[2018-05-30] MEDS: levETIRAcetam LIQUID 100 MG/ML 30 ML/BOTTLE PEG SCH ×2 (10:24→21:20)
[2018-05-30] MEDS: DILTIAZEM 60 MG TABLET PO SCH ×2 (10:24→21:19)
[2018-05-30] MEDS: DOCUSATE SODIUM 100 MG CAPSULE PEG SCH ×2 (10:24→21:19)
[2018-05-30] MEDS: LISINOPRIL 5 MG TABLET PEG SCH (10:24)
[2018-05-30] MEDS: CHOLECALCIFEROL 1,000 UNIT TABLET PEG SCH (10:25)
[2018-05-30] MEDS: hydrALAZINE 25 MG TABLET PEG SCH ×2 (10:25→21:19)
[2018-05-30] MEDS: SODIUM CHLORIDE 0.9% 1,000 ML IV SCH (15:39)
[2018-05-30] MEDS: ENOXAPARIN 40 MG/0.4 ML SYRINGE SUBCUT SCH (17:39)
[2018-05-30] MEDS: BIMATOPROST 0.01% OPH SOLN 2.5 ML BOTTLE BOTH EYES SCH (21:20)
[2018-05-31] MEDS: INSULIN LISPRO 100 UNIT/ML SUBCUT SCH ×4 (00:46→18:43)
[2018-05-31] MEDS: SODIUM CHLORIDE 0.9% 1,000 ML IV SCH ×3 (03:39→22:32)
[2018-05-31 05:04] LABS: Basophils # 0.1 10*3/uL (0.0-0.2); Eosinophils # 0.6 10*3/uL (0.0-0.87); Eosinophils % 9.6 % (0.00-10.9); Hemoglobin 9.8 GM/DL (12.0-16.0); Immature Granulocytes % 0.2 %; Immature Granulocytes Absolute 0.01 #; Lymphocytes # 2.8 10*3/uL (1.4-4.0); Lymphocytes % 47.3 % (21.3-54.2); Mean Corpuscular HGB Conc 32.7 GM/DL (32-36); Mean Corpuscular Hemoglobin 35 PG (27-34); Mean Corpuscular Volume 107.9 FL (87-102); Mean Platelet Volume 11.7 FL (9.6-12.0); Monocytes # 0.8 10*3/uL (0.11-0.8); Monocytes % 13.2 % (1.7-12.7); Neutrophils # 1.7 10*3/uL (1.4-7.4); Neutrophils % 28.7 % (38.7-73.9); Platelet Count 142 T/CUMM (130-400); Red Blood Count 2.78 MC/CUMM (3.8-5.5); Red Cell Distribution Width 14.4 % (9.3-17.3); White Blood Count 5.8 T/CUMM (4-12)
[2018-05-31 05:34] LABS: Calcium 8.6 MG/DL (8.5-10.1); Osmolality,Calculated 290.8 MOS/KG (273-304); Potassium 3.7 MMOL/L (3.5-5.1)
[2018-05-31 07:09] LABS: Anisocytosis Slight; Band Neutrophils 1 % (0-10); Eosinophils 14 % (0-10); Lymphocytes 47 % (20-55); Macrocytosis 3+; Platelet Estimate Normal; Segmented Neutrophils 34 % (50-85); Total Cells Counted 100
[2018-05-31] MEDS: PIPERACILLIN/TAZOBACTAM 3,375 MG in SODIUM CHLORIDE 0.9% 100 ML IV SCH ×2 (07:55→15:56)
[2018-05-31] MEDS: DILTIAZEM 60 MG TABLET PO SCH ×2 (10:15→22:21)
[2018-05-31] MEDS: hydrALAZINE 25 MG TABLET PEG SCH ×2 (10:16→22:21)
[2018-05-31] MEDS: CALCIUM (CARBONATE)/VITAMIN D 600 MG-400 UNIT TABLET PEG SCH ×2 (10:16→22:20)
[2018-05-31] MEDS: FLUCONAZOLE 40 MG/ML 35 ML/BOTTLE PO SCH (10:16)
[2018-05-31] MEDS: LISINOPRIL 5 MG TABLET PEG SCH (10:16)
[2018-05-31] MEDS: PHENYTOIN 100 MG/4 ML UDCUP PEG SCH (10:16)
[2018-05-31] MEDS: CHOLECALCIFEROL 1,000 UNIT TABLET PEG SCH (10:16)
[2018-05-31] MEDS: DOCUSATE SODIUM 100 MG CAPSULE PEG SCH ×2 (10:16→22:21)
[2018-05-31] MEDS: FERROUS SULFATE 300 MG/5 ML UDCUP PEG SCH (10:17)
[2018-05-31] MEDS: POLYVINYL ALCOHOL 1.4% OPH SOLN 15 ML BOTTLE BOTH EYES SCH ×4 (10:17→22:20)
[2018-05-31] MEDS: levETIRAcetam LIQUID 100 MG/ML 30 ML/BOTTLE PEG SCH ×2 (10:17→22:21)
[2018-05-31] MEDS: ENOXAPARIN 40 MG/0.4 ML SYRINGE SUBCUT SCH (17:54)
[2018-05-31] MEDS: CEFEPIME 1,000 MG in SYRINGE 1 EACH IV SCH (17:55)
[2018-05-31] MEDS: BIMATOPROST 0.01% OPH SOLN 2.5 ML BOTTLE BOTH EYES SCH (22:20)
[2018-06-01] MEDS: INSULIN LISPRO 100 UNIT/ML SUBCUT SCH ×3 (00:19→15:35)
[2018-06-01] MEDS: ALBUTEROL/IPRATROPIUM 3 ML NEB RESP TX SCH ×3 (01:22→13:51)
[2018-06-01] MEDS: CEFEPIME 1,000 MG in SYRINGE 1 EACH IV SCH ×2 (01:31→11:08)
[2018-06-01 07:13] LABS: Basophils # 0.1 10*3/uL (0.0-0.2); Basophils % 0.9 % (0.0-0.8); Eosinophils # 0.6 10*3/uL (0.0-0.87); Eosinophils % 8.9 % (0.00-10.9); Hematocrit 30.9 VOL% (35.7-47.0); Hemoglobin 9.8 GM/DL (12.0-16.0); Immature Granulocytes % 0.2 %; Immature Granulocytes Absolute 0.01 #; Lymphocytes # 2.7 10*3/uL (1.4-4.0); Lymphocytes % 42.2 % (21.3-54.2); Mean Corpuscular HGB Conc 31.7 GM/DL (32-36); Mean Corpuscular Hemoglobin 34 PG (27-34); Mean Corpuscular Volume 108.4 FL (87-102); Mean Platelet Volume 12.4 FL (9.6-12.0); Monocytes # 0.7 10*3/uL (0.11-0.8); Monocytes % 11.4 % (1.7-12.7); Neutrophils # 2.4 10*3/uL (1.4-7.4); Neutrophils % 36.4 % (38.7-73.9); Platelet Count 146 T/CUMM (130-400); Red Blood Count 2.85 MC/CUMM (3.8-5.5); Red Cell Distribution Width 14.3 % (9.3-17.3); White Blood Count 6.5 T/CUMM (4-12)
[2018-06-01 07:32] LABS: Prealbumin 14.7 MG/DL (20-40)
[2018-06-01 07:36] LABS: Calcium 8.7 MG/DL (8.5-10.1); Potassium 3.8 MMOL/L (3.5-5.1)
[2018-06-01 07:39] LABS: Eosinophils 7 % (0-10); Hypochromasia 1+; Lymphocytes 49 % (20-55); Segmented Neutrophils 32 % (50-85); Total Cells Counted 100
[2018-06-01 07:40] LABS: Macrocytosis 1+; Platelet Estimate Adequate
[2018-06-01 07:41] LABS: Atypical Lymphocytes Few
[2018-06-01] MEDS: DOCUSATE SODIUM 100 MG CAPSULE PEG SCH (11:09)
[2018-06-01] MEDS: hydrALAZINE 25 MG TABLET PEG SCH (11:09)
[2018-06-01] MEDS: PHENYTOIN 100 MG/4 ML UDCUP PEG SCH (11:20)
[2018-06-01] MEDS: DILTIAZEM 60 MG TABLET PO SCH (11:21)
[2018-06-01] MEDS: CALCIUM (CARBONATE)/VITAMIN D 600 MG-400 UNIT TABLET PEG SCH (11:21)
[2018-06-01] MEDS: CHOLECALCIFEROL 1,000 UNIT TABLET PEG SCH (11:21)
[2018-06-01] MEDS: FERROUS SULFATE 300 MG/5 ML UDCUP PEG SCH (11:21)
[2018-06-01] MEDS: POLYVINYL ALCOHOL 1.4% OPH SOLN 15 ML BOTTLE BOTH EYES SCH ×2 (11:21→15:10)
[2018-06-01] MEDS: levETIRAcetam LIQUID 100 MG/ML 30 ML/BOTTLE PEG SCH (11:22)
[2018-06-01] MEDS: LISINOPRIL 5 MG TABLET PEG SCH (11:22)
[2018-06-01] MEDS: FLUCONAZOLE 40 MG/ML 35 ML/BOTTLE PO SCH (11:22)
[2018-06-01] MEDS: SODIUM CHLORIDE 0.9% 1,000 ML IV SCH (11:23)
[2018-06-01] MEDS ORDERED: FOSFOMYCIN 3 GM PACK PEG ONE (12:37)
[2018-06-01] MEDS ORDERED: ASCORBIC ACID 500 MG TABLET PEG SCH (13:00)
[2018-06-01] MEDS ORDERED: METHENAMINE HIPPURATE 1 GM TABLET PEG SCH (13:00)
[2018-06-01] MEDS ORDERED: ZINC OXIDE PASTE 113 GM TUBE TOP SCH (14:00)
[2018-06-01] MEDS: SCOPOLAMINE 1.5 MG PATCH TRANSDERM SCH (15:10)
[2018-06-01 16:46] VITALS: BP 135/67
== END 2018-06-01 16:35 | DRG 690 ==
LOC: EDUNIT# → EDBD → N.ED 13:27 → SUATTDRO 16:26 → N.EDINP 16:26 → N.3E 18:37
PROVIDERS: ADMIT Internal Medicine; ATTEND Hospitalist

== ENCOUNTER 2018-08-04 15:53 | Inpatient (IN) ==
[2018-08-04] MEDS ORDERED: PIPERACILLIN/TAZOBACTAM 3,375 MG in SODIUM CHLORIDE 0.9% 100 ML IV STA (17:09)
[2018-08-04] MEDS ORDERED: SODIUM CHLORIDE 0.9% 500 ML IV STA (17:09)
[2018-08-04 17:23] LABS: Basophils # 0.1 10*3/uL (0.0-0.2); Basophils % 0.7 % (0.0-0.8); Eosinophils # 0.3 10*3/uL (0.0-0.87); Eosinophils % 2.8 % (0.00-10.9); Hematocrit 33.8 VOL% (35.7-47.0); Immature Granulocytes % 0.7 %; Immature Granulocytes Absolute 0.06 #; Lymphocytes # 2.4 10*3/uL (1.4-4.0); Lymphocytes % 27.8 % (21.3-54.2); Mean Corpuscular HGB Conc 32.5 GM/DL (32-36); Mean Corpuscular Hemoglobin 35 PG (27-34); Mean Platelet Volume 10.6 FL (9.6-12.0); NRBC # 0.02 10*3/uL; Platelet Count 167 T/CUMM (130-400); Red Blood Count 3.13 MC/CUMM (3.8-5.5); White Blood Count 8.8 T/CUMM (4-12)
[2018-08-04 17:41] LABS: Alanine Aminotransferase 27 U/L (13-56); Albumin 2.7 G/DL (3.4-5.0); Alkaline Phosphatase 132 U/L (45-117); Aspartate Amino Transferase 28 U/L (0-37); Bilirubin,Total < 0.39 MG/DL (0.2-1.0); Blood Urea Nitrogen 30 MG/DL (7-18); Calcium 8.9 MG/DL (8.5-10.1); Glucose 110 MG/DL (74-106); Osmolality,Calculated 285.4 MOS/KG (273-304); Potassium 3.9 MMOL/L (3.5-5.1); Sodium 140 MMOL/L (136-145)
[2018-08-04 17:42] LABS: Lactic Acid 1.2 MMOL/L (0.4-2.0)
[2018-08-04 17:47] LABS: INR 0.9
[2018-08-04 18:28] LABS: Apearance,Urine Slightly Hazy (Clear); Bacteria,Urine Occasional /HPF (Few); Bilirubin,Urine Negative (Negative); Blood, Urine Negative (Negative); Glucose,Urine (UA) Negative (Negative); Ketones,Urine Negative (Negative); Mucus,Urine Occasional /LPF (Occasional); Nitrite,Urine Negative (Negative); Protein,Urine Negative; RBC,Urine 8 /HPF (0-4); Urine Color Yellow (Yellow); Urine Specific Gravity 1.016 (1.001-1.035); Urine Urobilinogen < 2.0 EU/DL (0.2-1.0); WBC,Urine 11 /HPF (0-6)
[2018-08-04] MEDS ORDERED: cefTRIAXone 1,000 MG in SODIUM CHLORIDE 0.9% 100 ML IV STA (18:58)
[2018-08-04] MEDS ORDERED: ACETAMINOPHEN 325 MG TABLET PEG PRN (20:37)
[2018-08-04] MEDS ORDERED: ONDANSETRON 4 MG/2 ML VIAL IV PRN (20:37)
[2018-08-04] MEDS: POLYVINYL ALCOHOL 1.4% OPH SOLN 15 ML BOTTLE BOTH EYES SCH (22:00)
[2018-08-04] MEDS: BIMATOPROST 0.01% OPH SOLN 2.5 ML BOTTLE BOTH EYES SCH (22:00)
[2018-08-04] MEDS: LACTULOSE 20 GM/30 ML UDCUP PO SCH (23:16)
[2018-08-04] MEDS: ENOXAPARIN 40 MG/0.4 ML SYRINGE SUBCUT SCH (23:16)
[2018-08-04] MEDS: metroNIDAZOLE INJ 500 MG in PREMIX 1 EACH IV SCH (23:55)
[2018-08-05] MEDS: ALBUTEROL/IPRATROPIUM 3 ML NEB RESP TX SCH ×4 (00:20→19:53)
[2018-08-05] MEDS: LACTULOSE 20 GM/30 ML UDCUP PO SCH ×4 (03:53→20:45)
[2018-08-05] MEDS: metroNIDAZOLE INJ 500 MG in PREMIX 1 EACH IV SCH ×2 (06:21→12:02)
[2018-08-05 06:23] LABS: Basophils # 0.1 10*3/uL (0.0-0.2); Basophils % 0.8 % (0.0-0.8); Eosinophils # 0.3 10*3/uL (0.0-0.87); Eosinophils % 3.9 % (0.00-10.9); Hematocrit 32.3 VOL% (35.7-47.0); Hemoglobin 10.4 GM/DL (12.0-16.0); Immature Granulocytes % 0.5 %; Immature Granulocytes Absolute 0.03 #; Lymphocytes # 1.8 10*3/uL (1.4-4.0); Lymphocytes % 27.8 % (21.3-54.2); Mean Corpuscular HGB Conc 32.2 GM/DL (32-36); Mean Corpuscular Hemoglobin 35 PG (27-34); Mean Corpuscular Volume 109.5 FL (87-102); Mean Platelet Volume 11.1 FL (9.6-12.0); Monocytes # 0.9 10*3/uL (0.11-0.8); Monocytes % 14.3 % (1.7-12.7); Neutrophils # 3.5 10*3/uL (1.4-7.4); Neutrophils % 52.7 % (38.7-73.9); Platelet Count 160 T/CUMM (130-400); Red Blood Count 2.95 MC/CUMM (3.8-5.5); Red Cell Distribution Width 14.1 % (9.3-17.3); White Blood Count 6.6 T/CUMM (4-12)
[2018-08-05 06:56] LABS: Osmolality,Calculated 287.1 MOS/KG (273-304); Potassium 3.9 MMOL/L (3.5-5.1)
[2018-08-05 07:07] LABS: Folate > 24.0 NG/ML (5.4-24.0); Vitamin B12 1672 PG/ML (211-911)
[2018-08-05] MEDS: levETIRAcetam LIQUID 100 MG/ML 30 ML/BOTTLE PEG SCH ×2 (09:37→20:44)
[2018-08-05] MEDS: PHENYTOIN 100 MG/4 ML UDCUP PEG SCH ×2 (09:40→20:44)
[2018-08-05] MEDS: ACETAMINOPHEN 325 MG/10.15 ML UDCUP PO SCH (09:40)
[2018-08-05] MEDS: POLYVINYL ALCOHOL 1.4% OPH SOLN 15 ML BOTTLE BOTH EYES SCH ×4 (09:40→21:04)
[2018-08-05] MEDS: FERROUS SULFATE 300 MG/5 ML UDCUP PEG SCH (09:43)
[2018-08-05] MEDS: LISINOPRIL 5 MG TABLET PEG SCH (09:44)
[2018-08-05] MEDS: CHOLECALCIFEROL 1,000 UNIT TABLET PEG SCH (09:44)
[2018-08-05] MEDS: ASCORBIC ACID 500 MG TABLET PEG SCH ×2 (09:44→20:45)
[2018-08-05] MEDS: ASPIRIN CHEW 81 MG TABLET PO SCH (09:44)
[2018-08-05] MEDS: METHENAMINE HIPPURATE 1 GM TABLET PEG SCH ×2 (09:44→20:45)
[2018-08-05] MEDS: hydrALAZINE 25 MG TABLET PEG SCH ×2 (09:45→21:04)
[2018-08-05] MEDS: MULTIVITAMIN LIQUID (CENTRUM) 60 ML BOTTLE PEG SCH (09:45)
[2018-08-05] MEDS: DILTIAZEM 60 MG TABLET PO SCH ×2 (09:45→21:03)
[2018-08-05] MEDS: CALCIUM (CARBONATE)/VITAMIN D 600 MG-400 UNIT TABLET PEG SCH ×2 (09:45→20:45)
[2018-08-05] MEDS: INSULIN REGULAR 100 UNIT/ML SUBCUT SCH ×2 (10:23→20:43)
[2018-08-05] MEDS: PIPERACILLIN/TAZOBACTAM 3,375 MG in SODIUM CHLORIDE 0.9% 100 ML IV SCH ×2 (15:50→22:56)
[2018-08-05] MEDS: SKIN HEALING OINT (AQUAPHOR) 50 GM TUBE TOP SCH (17:31)
[2018-08-05] MEDS: BIMATOPROST 0.01% OPH SOLN 2.5 ML BOTTLE BOTH EYES SCH (20:44)
[2018-08-05] MEDS ORDERED: cefTRIAXone 1,000 MG in SYRINGE 1 EACH IV SCH (21:00)
[2018-08-05] MEDS: ENOXAPARIN 40 MG/0.4 ML SYRINGE SUBCUT SCH (21:22)
[2018-08-06] MEDS: ALBUTEROL/IPRATROPIUM 3 ML NEB RESP TX SCH ×4 (01:41→19:12)
[2018-08-06] MEDS: LACTULOSE 20 GM/30 ML UDCUP PO SCH ×4 (05:27→21:19)
[2018-08-06 06:25] LABS: Basophils % 0.6 % (0.0-0.8); Eosinophils # 0.5 10*3/uL (0.0-0.87); Eosinophils % 6.7 % (0.00-10.9); Hematocrit 30.7 VOL% (35.7-47.0); Hemoglobin 9.7 GM/DL (12.0-16.0); Immature Granulocytes % 0.4 %; Immature Granulocytes Absolute 0.03 #; Lymphocytes # 2.4 10*3/uL (1.4-4.0); Lymphocytes % 34.1 % (21.3-54.2); Mean Corpuscular HGB Conc 31.6 GM/DL (32-36); Mean Corpuscular Hemoglobin 35 PG (27-34); Mean Corpuscular Volume 110.4 FL (87-102); Mean Platelet Volume 11.2 FL (9.6-12.0); Monocytes % 14.1 % (1.7-12.7); Neutrophils # 3.1 10*3/uL (1.4-7.4); Neutrophils % 44.1 % (38.7-73.9); Platelet Count 157 T/CUMM (130-400); Red Blood Count 2.78 MC/CUMM (3.8-5.5); Red Cell Distribution Width 14.1 % (9.3-17.3)
[2018-08-06 06:42] LABS: Calcium 8.8 MG/DL (8.5-10.1); Osmolality,Calculated 298.4 MOS/KG (273-304); Potassium 3.8 MMOL/L (3.5-5.1)
[2018-08-06 06:50] LABS: Hypochromasia Slight; Macrocytosis 1+; Target Cells Slight
[2018-08-06 06:51] LABS: Platelet Estimate Adequate
[2018-08-06 07:07] LABS: Prealbumin 11.7 MG/DL (20-40)
[2018-08-06] MEDS: INSULIN REGULAR 100 UNIT/ML SUBCUT SCH ×2 (07:19→19:55)
[2018-08-06] MEDS: MULTIVITAMIN LIQUID (CENTRUM) 60 ML BOTTLE PEG SCH (08:45)
[2018-08-06] MEDS: FERROUS SULFATE 300 MG/5 ML UDCUP PEG SCH (08:45)
[2018-08-06] MEDS: DILTIAZEM 60 MG TABLET PO SCH ×2 (08:45→21:20)
[2018-08-06] MEDS: hydrALAZINE 25 MG TABLET PEG SCH ×2 (08:46→21:20)
[2018-08-06] MEDS: LISINOPRIL 5 MG TABLET PEG SCH (08:46)
[2018-08-06] MEDS: ASCORBIC ACID 500 MG TABLET PEG SCH ×2 (08:46→21:21)
[2018-08-06] MEDS: POLYVINYL ALCOHOL 1.4% OPH SOLN 15 ML BOTTLE BOTH EYES SCH ×4 (08:46→21:21)
[2018-08-06] MEDS: levETIRAcetam LIQUID 100 MG/ML 30 ML/BOTTLE PEG SCH ×2 (08:46→21:20)
[2018-08-06] MEDS: CALCIUM (CARBONATE)/VITAMIN D 600 MG-400 UNIT TABLET PEG SCH ×2 (08:46→21:20)
[2018-08-06] MEDS: METHENAMINE HIPPURATE 1 GM TABLET PEG SCH ×2 (08:46→21:20)
[2018-08-06] MEDS: PIPERACILLIN/TAZOBACTAM 3,375 MG in SODIUM CHLORIDE 0.9% 100 ML IV SCH ×3 (08:50→23:14)
[2018-08-06] MEDS: ASPIRIN CHEW 81 MG TABLET PO SCH (08:55)
[2018-08-06] MEDS: CHOLECALCIFEROL 1,000 UNIT TABLET PEG SCH (09:25)
[2018-08-06] MEDS: PHENYTOIN 100 MG/4 ML UDCUP PEG SCH ×2 (09:27→21:20)
[2018-08-06] MEDS: SKIN HEALING OINT (AQUAPHOR) 50 GM TUBE TOP SCH (10:20)
[2018-08-06] MEDS: ACETAMINOPHEN 325 MG/10.15 ML UDCUP PO SCH (11:20)
[2018-08-06] MEDS ORDERED: GLUCAGON 1 MG VIAL IM PRN (15:09)
[2018-08-06] MEDS ORDERED: DEXTROSE 50% 25 GM/50 ML VIAL IV PRN (15:09)
[2018-08-06] MEDS: ENOXAPARIN 40 MG/0.4 ML SYRINGE SUBCUT SCH (21:19)
[2018-08-06] MEDS: BIMATOPROST 0.01% OPH SOLN 2.5 ML BOTTLE BOTH EYES SCH (21:21)
[2018-08-07] MEDS: ALBUTEROL/IPRATROPIUM 3 ML NEB RESP TX SCH ×4 (00:56→19:42)
[2018-08-07] MEDS: LACTULOSE 20 GM/30 ML UDCUP PO SCH ×4 (03:23→21:18)
[2018-08-07 05:51] LABS: Basophils % 0.5 % (0.0-0.8); Eosinophils # 0.4 10*3/uL (0.0-0.87); Eosinophils % 7.7 % (0.00-10.9); Hematocrit 31.3 VOL% (35.7-47.0); Hemoglobin 10.4 GM/DL (12.0-16.0); Immature Granulocytes % 0.5 %; Immature Granulocytes Absolute 0.03 #; Lymphocytes # 2.5 10*3/uL (1.4-4.0); Lymphocytes % 43.8 % (21.3-54.2); Mean Corpuscular HGB Conc 33.2 GM/DL (32-36); Mean Corpuscular Hemoglobin 36 PG (27-34); Mean Corpuscular Volume 109.4 FL (87-102); Mean Platelet Volume 11.2 FL (9.6-12.0); Monocytes # 0.8 10*3/uL (0.11-0.8); NRBC # 0.02 10*3/uL; Neutrophils # 1.9 10*3/uL (1.4-7.4); Neutrophils % 33.5 % (38.7-73.9); Platelet Count 164 T/CUMM (130-400); Red Blood Count 2.86 MC/CUMM (3.8-5.5); Red Cell Distribution Width 14.3 % (9.3-17.3); White Blood Count 5.7 T/CUMM (4-12)
[2018-08-07] MEDS: PIPERACILLIN/TAZOBACTAM 3,375 MG in SODIUM CHLORIDE 0.9% 100 ML IV SCH ×3 (06:10→22:40)
[2018-08-07 06:36] LABS: Osmolality,Calculated 296.4 MOS/KG (273-304); Potassium 3.8 MMOL/L (3.5-5.1)
[2018-08-07 07:13] LABS: Atypical Lymphocytes Few; Band Neutrophils 3 % (0-10); Eosinophils 8 % (0-10); Lymphocytes 42 % (20-55); Metamyelocytes 2 %; Nucleated Red Blood Cells 1 (0-5); Platelet Estimate Normal; Polychromasia 1+; Segmented Neutrophils 32 % (50-85); Total Cells Counted 100
[2018-08-07] MEDS: INSULIN REGULAR 100 UNIT/ML SUBCUT SCH ×2 (07:38→18:40)
[2018-08-07] MEDS: ASCORBIC ACID 500 MG TABLET PEG SCH ×2 (08:22→21:16)
[2018-08-07] MEDS: ACETAMINOPHEN 325 MG/10.15 ML UDCUP PO SCH (08:22)
[2018-08-07] MEDS: CHOLECALCIFEROL 1,000 UNIT TABLET PEG SCH (08:23)
[2018-08-07] MEDS: METHENAMINE HIPPURATE 1 GM TABLET PEG SCH ×2 (08:23→21:16)
[2018-08-07] MEDS: PHENYTOIN 100 MG/4 ML UDCUP PEG SCH ×2 (08:23→21:17)
[2018-08-07] MEDS: ASPIRIN CHEW 81 MG TABLET PO SCH (08:23)
[2018-08-07] MEDS: LISINOPRIL 5 MG TABLET PEG SCH (08:23)
[2018-08-07] MEDS: DILTIAZEM 60 MG TABLET PO SCH ×2 (08:23→21:16)
[2018-08-07] MEDS: CALCIUM (CARBONATE)/VITAMIN D 600 MG-400 UNIT TABLET PEG SCH ×2 (08:23→21:16)
[2018-08-07] MEDS: FERROUS SULFATE 300 MG/5 ML UDCUP PEG SCH (08:23)
[2018-08-07] MEDS: SCOPOLAMINE 1.5 MG PATCH TRANSDERM SCH (08:24)
[2018-08-07] MEDS: levETIRAcetam LIQUID 100 MG/ML 30 ML/BOTTLE PEG SCH ×2 (08:24→21:17)
[2018-08-07] MEDS: MULTIVITAMIN LIQUID (CENTRUM) 60 ML BOTTLE PEG SCH (08:24)
[2018-08-07] MEDS: SKIN HEALING OINT (AQUAPHOR) 50 GM TUBE TOP SCH (08:24)
[2018-08-07] MEDS: POLYVINYL ALCOHOL 1.4% OPH SOLN 15 ML BOTTLE BOTH EYES SCH ×4 (08:24→21:18)
[2018-08-07] MEDS: hydrALAZINE 25 MG TABLET PEG SCH ×2 (08:24→21:16)
[2018-08-07] MEDS: BIMATOPROST 0.01% OPH SOLN 2.5 ML BOTTLE BOTH EYES SCH (21:17)
[2018-08-07] MEDS: ENOXAPARIN 40 MG/0.4 ML SYRINGE SUBCUT SCH (21:18)
[2018-08-08] MEDS: ALBUTEROL/IPRATROPIUM 3 ML NEB RESP TX SCH ×4 (00:02→20:13)
[2018-08-08] MEDS: LACTULOSE 20 GM/30 ML UDCUP PO SCH ×4 (03:07→23:15)
[2018-08-08] MEDS: PIPERACILLIN/TAZOBACTAM 3,375 MG in SODIUM CHLORIDE 0.9% 100 ML IV SCH ×3 (06:42→22:28)
[2018-08-08] MEDS: INSULIN REGULAR 100 UNIT/ML SUBCUT SCH ×2 (07:15→18:21)
[2018-08-08] MEDS: ACETAMINOPHEN 325 MG/10.15 ML UDCUP PO SCH (08:02)
[2018-08-08] MEDS: PHENYTOIN 100 MG/4 ML UDCUP PEG SCH ×2 (08:02→22:22)
[2018-08-08] MEDS: FERROUS SULFATE 300 MG/5 ML UDCUP PEG SCH (08:02)
[2018-08-08] MEDS: ASPIRIN CHEW 81 MG TABLET PO SCH (08:03)
[2018-08-08] MEDS: LISINOPRIL 5 MG TABLET PEG SCH (08:04)
[2018-08-08] MEDS: ASCORBIC ACID 500 MG TABLET PEG SCH ×2 (08:04→22:21)
[2018-08-08] MEDS: CHOLECALCIFEROL 1,000 UNIT TABLET PEG SCH (08:04)
[2018-08-08] MEDS: hydrALAZINE 25 MG TABLET PEG SCH ×2 (08:04→22:22)
[2018-08-08] MEDS: METHENAMINE HIPPURATE 1 GM TABLET PEG SCH ×2 (08:04→22:21)
[2018-08-08] MEDS: SKIN HEALING OINT (AQUAPHOR) 50 GM TUBE TOP SCH (08:05)
[2018-08-08] MEDS: CALCIUM (CARBONATE)/VITAMIN D 600 MG-400 UNIT TABLET PEG SCH ×2 (08:05→22:21)
[2018-08-08] MEDS: DILTIAZEM 60 MG TABLET PO SCH ×2 (08:05→22:21)
[2018-08-08] MEDS: levETIRAcetam LIQUID 100 MG/ML 30 ML/BOTTLE PEG SCH ×2 (08:05→22:27)
[2018-08-08] MEDS: POLYVINYL ALCOHOL 1.4% OPH SOLN 15 ML BOTTLE BOTH EYES SCH ×4 (08:05→22:25)
[2018-08-08] MEDS: MULTIVITAMIN LIQUID (CENTRUM) 60 ML BOTTLE PEG SCH (08:05)
[2018-08-08] MEDS: ENOXAPARIN 40 MG/0.4 ML SYRINGE SUBCUT SCH (22:25)
[2018-08-08] MEDS: BIMATOPROST 0.01% OPH SOLN 2.5 ML BOTTLE BOTH EYES SCH (22:26)
[2018-08-09] MEDS: ALBUTEROL/IPRATROPIUM 3 ML NEB RESP TX SCH ×4 (00:28→19:33)
[2018-08-09] MEDS: LACTULOSE 20 GM/30 ML UDCUP PO SCH ×4 (03:25→22:23)
[2018-08-09] MEDS: INSULIN REGULAR 100 UNIT/ML SUBCUT SCH ×2 (06:07→18:39)
[2018-08-09] MEDS: PIPERACILLIN/TAZOBACTAM 3,375 MG in SODIUM CHLORIDE 0.9% 100 ML IV SCH ×3 (06:08→22:24)
[2018-08-09] MEDS: FERROUS SULFATE 300 MG/5 ML UDCUP PEG SCH (07:45)
[2018-08-09] MEDS: ACETAMINOPHEN 325 MG/10.15 ML UDCUP PO SCH ×2 (07:45→08:13)
[2018-08-09] MEDS: CALCIUM (CARBONATE)/VITAMIN D 600 MG-400 UNIT TABLET PEG SCH ×2 (07:45→22:21)
[2018-08-09] MEDS: PHENYTOIN 100 MG/4 ML UDCUP PEG SCH ×2 (07:45→22:22)
[2018-08-09] MEDS: ASPIRIN CHEW 81 MG TABLET PO SCH (07:46)
[2018-08-09] MEDS: MULTIVITAMIN LIQUID (CENTRUM) 60 ML BOTTLE PEG SCH (07:46)
[2018-08-09] MEDS: ASCORBIC ACID 500 MG TABLET PEG SCH ×2 (07:46→22:21)
[2018-08-09] MEDS: LISINOPRIL 5 MG TABLET PEG SCH (07:46)
[2018-08-09] MEDS: levETIRAcetam LIQUID 100 MG/ML 30 ML/BOTTLE PEG SCH ×2 (07:46→22:22)
[2018-08-09] MEDS: DILTIAZEM 60 MG TABLET PO SCH ×2 (07:46→22:21)
[2018-08-09] MEDS: CHOLECALCIFEROL 1,000 UNIT TABLET PEG SCH (07:46)
[2018-08-09] MEDS: hydrALAZINE 25 MG TABLET PEG SCH ×2 (07:46→22:21)
[2018-08-09] MEDS: METHENAMINE HIPPURATE 1 GM TABLET PEG SCH ×2 (07:46→22:22)
[2018-08-09] MEDS: POLYVINYL ALCOHOL 1.4% OPH SOLN 15 ML BOTTLE BOTH EYES SCH ×4 (08:08→22:23)
[2018-08-09] MEDS: SKIN HEALING OINT (AQUAPHOR) 50 GM TUBE TOP SCH (08:08)
[2018-08-09] MEDS: ENOXAPARIN 40 MG/0.4 ML SYRINGE SUBCUT SCH (22:23)
[2018-08-09] MEDS: BIMATOPROST 0.01% OPH SOLN 2.5 ML BOTTLE BOTH EYES SCH (22:23)
[2018-08-10] MEDS: ALBUTEROL/IPRATROPIUM 3 ML NEB RESP TX SCH ×4 (01:18→18:58)
[2018-08-10] MEDS: LACTULOSE 20 GM/30 ML UDCUP PO SCH ×4 (03:04→22:27)
[2018-08-10 06:13] LABS: Calcium 8.9 MG/DL (8.5-10.1); Osmolality,Calculated 290.8 MOS/KG (273-304)
[2018-08-10] MEDS: PIPERACILLIN/TAZOBACTAM 3,375 MG in SODIUM CHLORIDE 0.9% 100 ML IV SCH ×2 (06:32→15:50)
[2018-08-10] MEDS: INSULIN REGULAR 100 UNIT/ML SUBCUT SCH ×2 (07:30→18:27)
[2018-08-10] MEDS: PHENYTOIN 100 MG/4 ML UDCUP PEG SCH ×2 (09:35→22:12)
[2018-08-10] MEDS: POLYVINYL ALCOHOL 1.4% OPH SOLN 15 ML BOTTLE BOTH EYES SCH ×4 (09:36→22:27)
[2018-08-10] MEDS: CHOLECALCIFEROL 1,000 UNIT TABLET PEG SCH (09:39)
[2018-08-10] MEDS: ASPIRIN CHEW 81 MG TABLET PO SCH (09:39)
[2018-08-10] MEDS: hydrALAZINE 25 MG TABLET PEG SCH ×2 (09:39→22:12)
[2018-08-10] MEDS: levETIRAcetam LIQUID 100 MG/ML 30 ML/BOTTLE PEG SCH ×2 (09:39→22:26)
[2018-08-10] MEDS: DILTIAZEM 60 MG TABLET PO SCH ×2 (09:40→22:12)
[2018-08-10] MEDS: MULTIVITAMIN LIQUID (CENTRUM) 60 ML BOTTLE PEG SCH (09:40)
[2018-08-10] MEDS: CALCIUM (CARBONATE)/VITAMIN D 600 MG-400 UNIT TABLET PEG SCH ×2 (09:40→22:12)
[2018-08-10] MEDS: METHENAMINE HIPPURATE 1 GM TABLET PEG SCH ×2 (09:40→22:11)
[2018-08-10] MEDS: ASCORBIC ACID 500 MG TABLET PEG SCH ×2 (09:40→22:12)
[2018-08-10] MEDS: SKIN HEALING OINT (AQUAPHOR) 50 GM TUBE TOP SCH (09:41)
[2018-08-10] MEDS: LISINOPRIL 5 MG TABLET PEG SCH (09:41)
[2018-08-10] MEDS: SCOPOLAMINE 1.5 MG PATCH TRANSDERM SCH (09:42)
[2018-08-10] MEDS: ACETAMINOPHEN 325 MG/10.15 ML UDCUP PO SCH (09:42)
[2018-08-10] MEDS: FERROUS SULFATE 300 MG/5 ML UDCUP PEG SCH (09:44)
[2018-08-10] MEDS: ENOXAPARIN 40 MG/0.4 ML SYRINGE SUBCUT SCH (22:11)
[2018-08-10] MEDS: BIMATOPROST 0.01% OPH SOLN 2.5 ML BOTTLE BOTH EYES SCH (22:26)
[2018-08-11] MEDS: ALBUTEROL/IPRATROPIUM 3 ML NEB RESP TX SCH ×4 (01:12→19:15)
[2018-08-11] MEDS: PIPERACILLIN/TAZOBACTAM 3,375 MG in SODIUM CHLORIDE 0.9% 100 ML IV SCH ×4 (01:55→23:55)
[2018-08-11] MEDS: LACTULOSE 20 GM/30 ML UDCUP PO SCH ×4 (02:27→22:11)
[2018-08-11 06:17] LABS: Basophils % 0.5 % (0.0-0.8); Eosinophils # 0.4 10*3/uL (0.0-0.87); Eosinophils % 5.7 % (0.00-10.9); Hematocrit 31.9 VOL% (35.7-47.0); Immature Granulocytes % 0.5 %; Immature Granulocytes Absolute 0.04 #; Lymphocytes # 2.7 10*3/uL (1.4-4.0); Lymphocytes % 36.7 % (21.3-54.2); Mean Corpuscular HGB Conc 31.3 GM/DL (32-36); Mean Corpuscular Hemoglobin 34 PG (27-34); Mean Corpuscular Volume 108.1 FL (87-102); Mean Platelet Volume 11.5 FL (9.6-12.0); Monocytes # 0.7 10*3/uL (0.11-0.8); Monocytes % 9.3 % (1.7-12.7); NRBC # 0.11 10*3/uL; Neutrophils # 3.5 10*3/uL (1.4-7.4); Neutrophils % 47.3 % (38.7-73.9); Platelet Count 184 T/CUMM (130-400); Red Blood Count 2.95 MC/CUMM (3.8-5.5); White Blood Count 7.4 T/CUMM (4-12)
[2018-08-11 06:37] LABS: Calcium 8.9 MG/DL (8.5-10.1); Osmolality,Calculated 285.1 MOS/KG (273-304)
[2018-08-11] MEDS: INSULIN REGULAR 100 UNIT/ML SUBCUT SCH ×2 (06:46→18:19)
[2018-08-11] MEDS: ASCORBIC ACID 500 MG TABLET PEG SCH ×2 (07:59→22:10)
[2018-08-11] MEDS: ASPIRIN CHEW 81 MG TABLET PO SCH (07:59)
[2018-08-11] MEDS: LISINOPRIL 5 MG TABLET PEG SCH (07:59)
[2018-08-11] MEDS: METHENAMINE HIPPURATE 1 GM TABLET PEG SCH ×2 (07:59→22:10)
[2018-08-11] MEDS: ACETAMINOPHEN 325 MG/10.15 ML UDCUP PO SCH (07:59)
[2018-08-11] MEDS: CALCIUM (CARBONATE)/VITAMIN D 600 MG-400 UNIT TABLET PEG SCH ×2 (07:59→22:11)
[2018-08-11] MEDS: hydrALAZINE 25 MG TABLET PEG SCH ×2 (07:59→22:11)
[2018-08-11] MEDS: DILTIAZEM 60 MG TABLET PO SCH ×2 (07:59→22:09)
[2018-08-11] MEDS: CHOLECALCIFEROL 1,000 UNIT TABLET PEG SCH (07:59)
[2018-08-11] MEDS: FERROUS SULFATE 300 MG/5 ML UDCUP PEG SCH (08:00)
[2018-08-11] MEDS: PHENYTOIN 100 MG/4 ML UDCUP PEG SCH ×2 (08:00→22:09)
[2018-08-11] MEDS: MULTIVITAMIN LIQUID (CENTRUM) 60 ML BOTTLE PEG SCH (08:01)
[2018-08-11] MEDS: POLYVINYL ALCOHOL 1.4% OPH SOLN 15 ML BOTTLE BOTH EYES SCH ×4 (08:01→22:11)
[2018-08-11] MEDS: SKIN HEALING OINT (AQUAPHOR) 50 GM TUBE TOP SCH (08:01)
[2018-08-11] MEDS: levETIRAcetam LIQUID 100 MG/ML 30 ML/BOTTLE PEG SCH ×2 (08:01→22:08)
[2018-08-11] MEDS: ENOXAPARIN 40 MG/0.4 ML SYRINGE SUBCUT SCH (22:11)
[2018-08-11] MEDS: BIMATOPROST 0.01% OPH SOLN 2.5 ML BOTTLE BOTH EYES SCH (22:12)
[2018-08-12] MEDS: ALBUTEROL/IPRATROPIUM 3 ML NEB RESP TX SCH ×4 (00:18→19:06)
[2018-08-12] MEDS: LACTULOSE 20 GM/30 ML UDCUP PO SCH ×4 (03:55→21:03)
[2018-08-12] MEDS: PIPERACILLIN/TAZOBACTAM 3,375 MG in SODIUM CHLORIDE 0.9% 100 ML IV SCH ×3 (07:05→23:24)
[2018-08-12] MEDS: INSULIN REGULAR 100 UNIT/ML SUBCUT SCH ×2 (08:28→18:05)
[2018-08-12] MEDS: PHENYTOIN 100 MG/4 ML UDCUP PEG SCH ×2 (10:10→20:53)
[2018-08-12] MEDS: FERROUS SULFATE 300 MG/5 ML UDCUP PEG SCH (10:11)
[2018-08-12] MEDS: ACETAMINOPHEN 325 MG/10.15 ML UDCUP PO SCH (10:12)
[2018-08-12] MEDS: LISINOPRIL 5 MG TABLET PEG SCH (10:12)
[2018-08-12] MEDS: DILTIAZEM 60 MG TABLET PO SCH ×2 (10:12→20:53)
[2018-08-12] MEDS: CALCIUM (CARBONATE)/VITAMIN D 600 MG-400 UNIT TABLET PEG SCH ×2 (10:13→20:54)
[2018-08-12] MEDS: ASCORBIC ACID 500 MG TABLET PEG SCH ×2 (10:13→20:53)
[2018-08-12] MEDS: hydrALAZINE 25 MG TABLET PEG SCH ×2 (10:13→20:53)
[2018-08-12] MEDS: CHOLECALCIFEROL 1,000 UNIT TABLET PEG SCH (10:14)
[2018-08-12] MEDS: ASPIRIN CHEW 81 MG TABLET PO SCH (10:14)
[2018-08-12] MEDS: METHENAMINE HIPPURATE 1 GM TABLET PEG SCH (10:14)
[2018-08-12] MEDS: SKIN HEALING OINT (AQUAPHOR) 50 GM TUBE TOP SCH (10:15)
[2018-08-12] MEDS: POLYVINYL ALCOHOL 1.4% OPH SOLN 15 ML BOTTLE BOTH EYES SCH ×4 (10:15→21:02)
[2018-08-12] MEDS: MULTIVITAMIN LIQUID (CENTRUM) 60 ML BOTTLE PEG SCH (10:20)
[2018-08-12] MEDS: levETIRAcetam LIQUID 100 MG/ML 30 ML/BOTTLE PEG SCH ×2 (10:21→21:00)
[2018-08-12] MEDS: ENOXAPARIN 40 MG/0.4 ML SYRINGE SUBCUT SCH (20:53)
[2018-08-12] MEDS: BIMATOPROST 0.01% OPH SOLN 2.5 ML BOTTLE BOTH EYES SCH (21:02)
[2018-08-13] MEDS: ALBUTEROL/IPRATROPIUM 3 ML NEB RESP TX SCH ×2 (00:11→07:18)
[2018-08-13] MEDS: LACTULOSE 20 GM/30 ML UDCUP PO SCH ×2 (04:21→09:13)
[2018-08-13 06:07] LABS: Basophils # 0.1 10*3/uL (0.0-0.2); Basophils % 0.9 % (0.0-0.8); Eosinophils # 0.3 10*3/uL (0.0-0.87); Hematocrit 32.6 VOL% (35.7-47.0); Hemoglobin 10.4 GM/DL (12.0-16.0); Immature Granulocytes % 0.7 %; Immature Granulocytes Absolute 0.04 #; Lymphocytes % 35.3 % (21.3-54.2); Mean Corpuscular HGB Conc 31.9 GM/DL (32-36); Mean Corpuscular Hemoglobin 35 PG (27-34); Mean Platelet Volume 11.7 FL (9.6-12.0); Monocytes # 0.5 10*3/uL (0.11-0.8); Monocytes % 9.2 % (1.7-12.7); NRBC # 0.05 10*3/uL; Neutrophils # 2.8 10*3/uL (1.4-7.4); Neutrophils % 48.9 % (38.7-73.9); Platelet Count 206 T/CUMM (130-400); Red Blood Count 2.99 MC/CUMM (3.8-5.5); Red Cell Distribution Width 14.3 % (9.3-17.3); White Blood Count 5.8 T/CUMM (4-12)
[2018-08-13 06:19] LABS: Calcium 9.2 MG/DL (8.5-10.1); Osmolality,Calculated 284.1 MOS/KG (273-304); Potassium 3.8 MMOL/L (3.5-5.1)
[2018-08-13] MEDS: INSULIN REGULAR 100 UNIT/ML SUBCUT SCH (06:52)
[2018-08-13] MEDS: FERROUS SULFATE 300 MG/5 ML UDCUP PEG SCH (09:14)
[2018-08-13] MEDS: SCOPOLAMINE 1.5 MG PATCH TRANSDERM SCH (09:14)
[2018-08-13] MEDS: PHENYTOIN 100 MG/4 ML UDCUP PEG SCH (09:14)
[2018-08-13] MEDS: CALCIUM (CARBONATE)/VITAMIN D 600 MG-400 UNIT TABLET PEG SCH (09:15)
[2018-08-13] MEDS: DILTIAZEM 60 MG TABLET PO SCH (09:15)
[2018-08-13] MEDS: CHOLECALCIFEROL 1,000 UNIT TABLET PEG SCH (09:16)
[2018-08-13] MEDS: ASCORBIC ACID 500 MG TABLET PEG SCH (09:16)
[2018-08-13] MEDS: hydrALAZINE 25 MG TABLET PEG SCH (09:17)
[2018-08-13] MEDS: ASPIRIN CHEW 81 MG TABLET PO SCH (09:17)
[2018-08-13] MEDS: SKIN HEALING OINT (AQUAPHOR) 50 GM TUBE TOP SCH (09:18)
[2018-08-13] MEDS: POLYVINYL ALCOHOL 1.4% OPH SOLN 15 ML BOTTLE BOTH EYES SCH ×2 (09:18→12:49)
[2018-08-13] MEDS: levETIRAcetam LIQUID 100 MG/ML 30 ML/BOTTLE PEG SCH (09:18)
[2018-08-13] MEDS: MULTIVITAMIN LIQUID (CENTRUM) 60 ML BOTTLE PEG SCH (09:18)
[2018-08-13] MEDS: LISINOPRIL 5 MG TABLET PEG SCH (09:19)
[2018-08-13] MEDS: ACETAMINOPHEN 325 MG/10.15 ML UDCUP PO SCH (09:24)
[2018-08-13 12:40] VITALS: BP 137/74
[2018-08-13] MEDS ORDERED: NYSTATIN 500,000 UNIT/5 ML UDCUP PO SCH (13:00)
== END 2018-08-13 13:14 | DRG 177 ==
LOC: EDBD → EDUNIT# → N.ED 15:53 → N.EDINP 15:53 → N.5E 20:34 → SUATTDRO 20:37 → N.5E 21:02
PROVIDERS: ADMIT Internal Medicine; ATTEND Internal Medicine